=== PATIENT | female | born 1945 | race Caucasian/White ===

== ENCOUNTER 2022-01-23 08:51 | Outpatient (REF) | payer MEDICARE, OTHER, SELFPAY ==
[2022-01-23 10:32] LABS: MANUAL DIFF FLAG NO
[2022-01-23 10:37] LABS: Basophils Absolute Auto 0.1 X10*3/uL (0.0-0.2); Basophils Percent Auto 0.7 % (0-2); Eosinophils Absolute Auto 0.3 X10*3/uL (0.0-0.4); Eosinophils Percent Auto 3.5 % (0-4); Hemoglobin 13.9 g/dl (12.0-16.0); Imm Gran Abs Auto 0.03 X10*3/uL (0.00-0.03); Imm Gran Pct Auto 0.4 % (0.0-0.4); Lymphocytes Absolute Auto 3.7 X10*3/uL (1.2-4.9); Lymphocytes Percent Auto 43.7 % (20-40); Mean Corpuscular HGB Conc 32.3 g/dl (31.0-35.0); Mean Corpuscular Hemoglobin 29.6 pg (27.0-33.0); Mean Corpuscular Volume 91.7 fL (80.0-98.0); Mean Platelet Volume 12.2 fL (9.4-12.3); Monocytes Absolute Auto 0.7 X10*3/uL (0.1-1.2); Monocytes Percent Auto 8.6 % (2-11); Neutrophils Absolute Auto 3.6 x10*3/uL (2.0-8.3); Neutrophils Percent Auto 43.1 % (45-73); Platelet Count 202 X10*3/uL (160-400); Red Blood Count 4.69 X10*6/uL (4.20-5.50); Red Cell Distribution Width 13.2 % (11.0-16.0); White Blood Count 8.4 X10*3/uL (4.8-10.8)
[2022-01-23 10:54] LABS: Alanine Aminotransferase 14 U/L (0-31); Albumin Level 4.4 g/dL (3.5-5.0); Alkaline Phosphatase 65 U/L (39-117); Anion Gap 12 (12-20); Aspartate Amino Transferase 20 U/L (5-31); Bilirubin Total 0.5 mg/dL (0.0-1.0); Blood Urea Nitrogen 21 mg/dL (9-16); Carbon Dioxide 30 mmol/L (22-29); Chloride 103 mmol/L (96-108); Estimated Glomerular Filt Rate > 60; Glucose Random 98 mg/dL (60-115); Potassium 4.3 mmol/L (3.3-5.1); Sodium 141 mmol/L (135-145); Total Protein 7.7 g/dL (6.5-8.0)
[2022-01-23 11:14] LABS: Erythrocyte Sedimentation Rate 16 MM/HR (0-20)
[2022-01-30 12:56] LABS: Vitamin D 25-OH, D2 <4 ng/mL; Vitamin D 25-OH, D3 32 ng/mL; Vitamin D 25-OH, Total 32 ng/mL (30-100)
== END 2022-01-23 08:52 | disposition home or self-care (01) ==
LOC: HO.10HDL 08:51
PROVIDERS: Visit Provider Internal Medicine Rheumatology
DX: M06.9 Rheumatoid arthritis, unspecified (principal); M47.816 Spondylosis without myelopathy or radiculopathy, lumbar region; M85.80 Other specified disorders of bone density and structure, unspecified site; Z79.899 Other long term (current) drug therapy
CPT/HCPCS: 36415; 80053; 82306; 85025; 85652; 86140; 99212

== ENCOUNTER 2022-02-08 09:04 | Outpatient (REF) | payer MEDICARE, OTHER, SELFPAY ==
[2022-02-08 10:12] LABS: Blood Urea Nitrogen 16 mg/dL (9-16); Estimated Glomerular Filt Rate > 60
== END 2022-02-08 09:05 | disposition home or self-care (01) ==
LOC: HO.MDS 09:04
PROVIDERS: Visit Provider Internal Medicine Rheumatology
DX: M81.0 Age-related osteoporosis without current pathological fracture (principal)
CPT/HCPCS: 36415; 82565; 84520; 96365; J3489

== ENCOUNTER → 2022-05-23 08:03 | Outpatient (BNVA) | payer MEDICARE, OTHER, SELFPAY | PROVIDERS: PCP Internal Medicine; Referring Provider Internal Medicine; Visit Provider Internal Medicine Rheumatology | DX: M06.9 Rheumatoid arthritis, unspecified (principal); M85.80 Other specified disorders of bone density and structure, unspecified site; M47.816 Spondylosis without myelopathy or radiculopathy, lumbar region; Z79.899 Other long term (current) drug therapy | CPT/HCPCS: 99212 ==

== ENCOUNTER 2022-06-28 11:18 | Outpatient (REF) | payer MEDICARE, OTHER, SELFPAY ==
[2022-06-28 14:11] LABS: MANUAL DIFF FLAG NO
[2022-06-28 14:19] LABS: Basophils Absolute Auto 0.1 X10*3/uL (0.0-0.2); Basophils Percent Auto 0.6 % (0-2); Eosinophils Absolute Auto 0.2 X10*3/uL (0.0-0.4); Eosinophils Percent Auto 1.8 % (0-4); Hematocrit 41.5 % (37.0-47.0); Hemoglobin 13.6 g/dl (12.0-16.0); Imm Gran Abs Auto 0.03 X10*3/uL (0.00-0.03); Imm Gran Pct Auto 0.3 % (0.0-0.4); Lymphocytes Absolute Auto 3.6 X10*3/uL (1.2-4.9); Lymphocytes Percent Auto 36.8 % (20-40); Mean Corpuscular HGB Conc 32.8 g/dl (31.0-35.0); Mean Corpuscular Hemoglobin 31.1 pg (27.0-33.0); Mean Corpuscular Volume 94.7 fL (80.0-98.0); Mean Platelet Volume 12.5 fL (9.4-12.3); Monocytes Absolute Auto 0.7 X10*3/uL (0.1-1.2); Monocytes Percent Auto 7.5 % (2-11); Neutrophils Absolute Auto 5.2 x10*3/uL (2.0-8.3); Platelet Count 174 X10*3/uL (160-400); Red Blood Count 4.38 X10*6/uL (4.20-5.50); Red Cell Distribution Width 13.5 % (11.0-16.0); White Blood Count 9.9 X10*3/uL (4.8-10.8)
[2022-06-28 14:31] LABS: Alanine Aminotransferase 11 U/L (0-31); Aspartate Amino Transferase 15 U/L (5-31); C Reactive Protein 0.07 mg/dL (< or = 0.50); Estimated Glomerular Filt Rate > 60
[2022-06-28 14:57] LABS: Erythrocyte Sedimentation Rate 7 MM/HR (0-20)
== END 2022-06-28 11:19 | disposition home or self-care (01) ==
LOC: HO.HMGCLDS 11:18
PROVIDERS: PCP Internal Medicine; Visit Provider Internal Medicine Rheumatology
DX: M06.9 Rheumatoid arthritis, unspecified (principal); Z79.899 Other long term (current) drug therapy
CPT/HCPCS: 36415; 82565; 84450; 84460; 85025; 85652; 86140

== ENCOUNTER 2022-09-14 10:06 | Outpatient (REF) | payer MEDICARE, OTHER, SELFPAY ==
[2022-09-14 11:19] LABS: MANUAL DIFF FLAG NO
[2022-09-14 11:29] LABS: Basophils Absolute Auto 0.1 X10*3/uL (0.0-0.2); Basophils Percent Auto 0.9 % (0-2); Eosinophils Absolute Auto 0.2 X10*3/uL (0.0-0.4); Eosinophils Percent Auto 2.2 % (0-4); Hematocrit 40.8 % (37.0-47.0); Hemoglobin 13.4 g/dl (12.0-16.0); Imm Gran Abs Auto 0.03 X10*3/uL (0.00-0.03); Imm Gran Pct Auto 0.3 % (0.0-0.4); Lymphocytes Absolute Auto 4.3 X10*3/uL (1.2-4.9); Lymphocytes Percent Auto 44.5 % (20-40); Mean Corpuscular HGB Conc 32.8 g/dl (31.0-35.0); Mean Corpuscular Hemoglobin 30.7 pg (27.0-33.0); Mean Corpuscular Volume 93.4 fL (80.0-98.0); Mean Platelet Volume 12.2 fL (9.4-12.3); Monocytes Absolute Auto 0.8 X10*3/uL (0.1-1.2); Monocytes Percent Auto 8.1 % (2-11); Neutrophils Absolute Auto 4.2 x10*3/uL (2.0-8.3); Platelet Count 170 X10*3/uL (160-400); Red Blood Count 4.37 X10*6/uL (4.20-5.50); Red Cell Distribution Width 13.5 % (11.0-16.0); White Blood Count 9.6 X10*3/uL (4.8-10.8)
== END 2022-09-14 10:07 | disposition home or self-care (01) ==
LOC: HO.HMGCLDS 10:06
PROVIDERS: Visit Provider Internal Medicine Rheumatology
DX: M06.9 Rheumatoid arthritis, unspecified (principal); Z79.899 Other long term (current) drug therapy
CPT/HCPCS: 36415; 85025

== ENCOUNTER → 2022-09-23 08:04 | Outpatient (BNVA) | payer MEDICARE, OTHER, SELFPAY | PROVIDERS: PCP Internal Medicine; Visit Provider Internal Medicine Rheumatology | DX: R06.9 Unspecified abnormalities of breathing (principal); M47.816 Spondylosis without myelopathy or radiculopathy, lumbar region; M06.9 Rheumatoid arthritis, unspecified; M19.079 Primary osteoarthritis, unspecified ankle and foot; Z79.899 Other long term (current) drug therapy | CPT/HCPCS: 99212 ==

== ENCOUNTER 2023-01-09 10:10 | Outpatient (REF) | payer MEDICARE, OTHER, SELFPAY | END 2023-01-09 10:11 | disposition home or self-care (01) | LOC: HO.HMGCLDS 10:10 | PROVIDERS: PCP Internal Medicine; Visit Provider Internal Medicine Rheumatology | DX: M06.9 Rheumatoid arthritis, unspecified (principal); Z79.899 Other long term (current) drug therapy | CPT/HCPCS: 36415; 82565; 84450; 84460; 85025; 85652; 86140 ==

== ENCOUNTER 2023-02-10 08:05 | Outpatient (AMB) | payer MEDICARE, OTHER, SELFPAY ==
[2023-02-10 08:10] VITALS: BP 134/68; PULSE 65; TEMP 36.3; O2SAT 95; BMI 24.0
--- NOTE | 2023-02-10 08:10 | MHC.OFFVIS ---
Intake Vital Signs 02/10/23 08:10 Height 5 ft 1 in Weight 126 lb 15.78 oz BMI 24.0 BP 134/68 Blood Pressure Location Rt brachial Position Sitting Pulse 65 Pulse Source Pulse Oximeter Temp 97.3 F Temp Source Skin Pulse Oximetry (%) 95 Intake Visit Reasons: RA Allergies lisinopril Allergy (Intermediate, Verified 02/10/23 08:12) Cough metoclopramide [From Reglan] Allergy (Intermediate, Verified 02/10/23 08:12) SHAKY,ANXIETY Seasonal Allergies Allergy (Intermediate, Verified 02/10/23 08:12) RUNNY NOSE Medication List - Last Reconciled 02/10/23 by Leobardo Amos MD adalimumab (Humira(CF) Pen) 40 mg (0.4 mL) subcut Q2W atenolol 50 mg PO DAILY atorvastatin 10 mg PO DAILY calcium carbonate-vitamin D3 600 mg-10 mcg (400 unit) (Calcium 600 + D(3)) 1 tab PO BID cetirizine (Zyrtec) 10 mg PO BEDTIME fluticasone propionate 50 mcg/actuation (Allergy Relief (fluticasone)) 2 sprays intranasal DAILY folic acid 1 mg PO DAILY hydrochlorothiazide 25 mg PO DAILY losartan 50 mg PO DAILY methotrexate sodium 17.5 mg (7 x 2.5 mg) PO QWEEK omeprazole 20 mg PO DAILY HPI HPI Comments History of Present Illness Details The patient returns for evaluation of her rheumatoid arthritis, osteoarthritis, and osteoporosis. She remains on 17.5 mg weekly methotrexate, folic acid 1 mg daily and Humira 40 mg every 2 weeks. In general the joints are doing fairly well. There is occasional aching in the 1st MTP joints. She has been given a referral to Podiatry but never got an appointment. She is thinking for right now she does not want to proceed with any surgical procedure on the feet. She did have to hold the Humira few weeks ago when she had a cat bite. She seems to have recovered from that with antibiotics. About a year ago she received a zoledronic acid infusion for osteopenia. That was tolerated well with no side effects. PFSH Surgical History Hx laparoscopic cholecystectomy Hx of colonoscopy Family History Father Hx of CABG Mother Asthma CHF (congestive heart failure) Sister Macular degeneration Social History Household Members Other:: lives alone Housing: [facility] Are you a primary rental boats caretaker to a significant other at home: No Do you presently have visiting nurse or other home services: No Alcohol intake: current Alcohol intake frequency: holidays/special occasions only Alcohol type: wine Patient Tobacco Use Status: Former Tobacco user Quit Date: 1981 Years Smoked: quit 1979 e-Cigarette/Vaping Use: Never Used service: No Current occupational status: employed 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 Card Details: Negative chest pain, edema and syncope Resp Details: Negative for SOB, cough and wheezing GI Details: Negative indigestion/heartburn, nausea, abdominal pain, bowel changes, diarrhea, constipation and bloody stool. Endo Details: Negative for polyuria and polydypsia Williams/Lymph Details: Negative for excessive bruising or bleeding. Physical Exam Vital Signs: Last Vital Signs Temp 97.3 F 02/10/23 08:10 Pulse 65 02/10/23 08:10 BP 134/68 02/10/23 08:10 Pulse Ox 95 02/10/23 08:10 BMI result Body Mass Index 24.0 APPEARANCE: Patient in no acute distress EXTREMITIES: No edema, no calf tenderness, normal peripheral pulses. JOINT EXAM: Cervical Spine:.? Full range of motion without pain; no tenderness. Thoracic Spine:.? Some scoliosis.? No tenderness on palpation. Lumbar Spine:.? Alignment normal.? Full range of motion without pain, no tenderness. Chest Wall:.? No tenderness, swelling, increased warmth or erythema. Hands:? Right:? There is slight swelling at the 2nd MCP and PIP without tenderness, triggering or pain with motion.? There is no thickening or tenderness in the other joints.? Otherwise the fingers have pain-free range of motion without tenderness or swelling.? There is no thenar atrophy or sensory loss.? Left:? Pain-free range of motion.? There is some slight thickening at the 2nd MCP without tenderness.? Other joints without tenderness or swelling.? No thenar atrophy or sensory loss.. Wrists:.? Normal pain-free range of motion without tenderness, swelling, increased warmth or erythema. Elbows:. Normal pain-free range of motion without tenderness, swelling, increased warmth or erythema. Shoulders:.?? Full range of motion without pain. No tenderness, weakness, swelling, increased warmth or erythema. Hips:.? Full range of motion without pain. Hip bursa:.? No tenderness. Knees:.?? Normal pain-free range of motion with slight patellofemoral crepitus but no effusion, tenderness, swelling, increased warmth or erythema. Ankles:.? Normal pain-free range of motion without tenderness, swelling, increased warmth or erythema. Feet:.? Right:? There is prominent bony swelling at the 1st MTP joint which is minimally tender.? On the medial aspect the joint the skin looks a little bit irritated and red.? There is no break in the skin.? There is some slight tenderness at the 2nd MTP joint.? The 2nd toe overrides the 1st.? Elsewhere there is no tenderness or swelling.? Left: Mild bony enlargement with minimal tenderness at the 1st MTP joint.? Other joints have normal pain-free range of motion without tenderness, swelling, increased warmth or erythema. . ? Results Reviewed Results Reviewed: Laboratory Tests 01/09/23 01/09/23 01/09/23 10:17 10:17 10:17 WBC 8.0 Hgb 13.9 ESR 10 AST 22 ALT 18 C-Reactive Protein 0.11 Assessment & Plan Assessment & Plan (1) Osteoarthritis of lumbar spine: Code(s): M47.816 - Spondylosis without myelopathy or radiculopathy, lumbar region (2) Long-term use of immunosuppressant medication: Code(s): Z79.899 - Other senior living (current) drug therapy (3) Osteopenia: Comment: DEXA 04/2021: Lumbar Spine: L1-L4 BMD: 1.119 g/cm2 T-Score: 1.3 Z-Score: 3.7 Compared with the prior study dated 02/15/2019, the BMD reading has increased which is statistically significant Left Proximal Femur: Neck BMD: 0.734 g/cm2 T-Score: -1.0 Z-Score: 1.0 Total BMD: 0.773 g/cm2 T-Score: -1.4 Z-Score: 0.4 Compared with the prior study the mean BMD reading in the total left hip has increased which is statistically significant Compared with standards for the young adult, lowest measured bone density places the patient in the W.H.O. osteopenic range. FRAX 10 year probability of major osteoporotic fracture: 28% FRAX 10 year probability of hip fracture: 5.1% 02/08/22: IV zoledronic acid given Code(s): M85.80 - Other specified disorders of bone density and structure, unspecified site (4) Rheumatoid arthritis: Comment: Hydroxychloroquine not working - 1989.s. Methotrexate started late 1989's ON REMICADE AND MTX since 2001; Remicade stopped spring 2007 due to sinusitis Humira started January 2008 Code(s): M06.9 - Rheumatoid arthritis, unspecified Plan Rheumatoid arthritis with good control of synovitis with current treatment. The lab work looks okay so I think those medications can be continued. She is symptomatic a bit with her osteoarthritis in the feet but does not want to have surgery there. Previous episodes of back pain due to lumbar osteoarthritis have not recurred. She is due for another infusion of zoledronic acid to treat her osteopenia. We will check BMP and vitamin-D level. If those look okay we will arrange for an infusion of the IV zoledronic acid. Otherwise her labs to monitor the methotrexate use would be due again in March. I would plan to see her back in June. Orders: Orders Basic Metabolic Panel Today M85.80 - Other specified disorders of bone density and structure, unspecified site Vitamin D 25-OH (D2 and D3) Today M85.80 - Other specified disorders of bone density and structure, unspecified site Coding Level of Care Code Est Pt Level 3 (77600) Diagnoses Osteoarthritis of lumbar spine M47.816 Long-term use of immunosuppressant medication Z79.899 Osteopenia M85.80 Rheumatoid arthritis M06.9
== END 2023-02-10 08:30 | disposition home or self-care (01) ==
PROVIDERS: PCP Internal Medicine; Visit Provider Internal Medicine Rheumatology
DX: M47.816 Spondylosis without myelopathy or radiculopathy, lumbar region (principal); Z79.899 Other long term (current) drug therapy; M85.80 Other specified disorders of bone density and structure, unspecified site; M06.9 Rheumatoid arthritis, unspecified
CPT/HCPCS: 99213

== ENCOUNTER 2023-02-10 08:35 | Outpatient (REF) | payer MEDICARE, OTHER, SELFPAY ==
[2023-02-10 11:03] LABS: Anion Gap 15 (12-20); Blood Urea Nitrogen 13 mg/dL (9-16); Calcium 9.6 mg/dL (8.4-10.2); Carbon Dioxide 26 mmol/L (22-29); Chloride 105 mmol/L (96-108); Estimated Glomerular Filt Rate > 60; Glucose Random 89 mg/dL (60-115); Potassium 3.9 mmol/L (3.3-5.1); Sodium 142 mmol/L (135-145)
[2023-02-14 15:08] LABS: Vitamin D 25-OH, D2 <4 ng/mL; Vitamin D 25-OH, D3 22 ng/mL; Vitamin D 25-OH, Total 22 ng/mL (30-100)
== END 2023-02-10 08:36 | disposition home or self-care (01) ==
LOC: HO.10HDL 08:35
PROVIDERS: Visit Provider Internal Medicine Rheumatology
DX: M85.80 Other specified disorders of bone density and structure, unspecified site (principal); M47.816 Spondylosis without myelopathy or radiculopathy, lumbar region; M06.9 Rheumatoid arthritis, unspecified; Z79.899 Other long term (current) drug therapy
CPT/HCPCS: 36415; 80048; 82306; 99212

== ENCOUNTER 2023-03-25 11:30 | Outpatient (REF) | payer MEDICARE, OTHER, SELFPAY ==
[2023-03-25 13:34] LABS: MANUAL DIFF FLAG NO
[2023-03-25 13:42] LABS: Basophils Absolute Auto 0.1 X10*3/uL (0.0-0.2); Basophils Percent Auto 0.7 % (0-2); Eosinophils Absolute Auto 0.1 X10*3/uL (0.0-0.4); Eosinophils Percent Auto 1.4 % (0-4); Hematocrit 40.8 % (37.0-47.0); Hemoglobin 13.6 g/dl (12.0-16.0); Imm Gran Abs Auto 0.03 X10*3/uL (0.00-0.03); Imm Gran Pct Auto 0.3 % (0.0-0.4); Lymphocytes Absolute Auto 3.7 X10*3/uL (1.2-4.9); Lymphocytes Percent Auto 38.6 % (20-40); Mean Corpuscular HGB Conc 33.3 g/dl (31.0-35.0); Mean Corpuscular Hemoglobin 32.3 pg (27.0-33.0); Mean Corpuscular Volume 96.9 fL (80.0-98.0); Monocytes Absolute Auto 0.7 X10*3/uL (0.1-1.2); Monocytes Percent Auto 6.9 % (2-11); Neutrophils Percent Auto 52.1 % (45-73); Platelet Count 206 X10*3/uL (160-400); Red Blood Count 4.21 X10*6/uL (4.20-5.50); Red Cell Distribution Width 13.5 % (11.0-16.0); White Blood Count 9.5 X10*3/uL (4.8-10.8)
[2023-03-25 14:02] LABS: Alanine Aminotransferase 25 U/L (0-31); Albumin Level 4.3 g/dL (3.5-5.0); Alkaline Phosphatase 51 U/L (39-117); Anion Gap 11 (12-20); Aspartate Amino Transferase 25 U/L (5-31); Bilirubin Total 0.7 mg/dL (0.0-1.0); Blood Urea Nitrogen 26 mg/dL (9-16); C Reactive Protein 0.31 mg/dL (< or = 0.50); Calcium 9.9 mg/dL (8.4-10.2); Carbon Dioxide 28 mmol/L (22-29); Chloride 105 mmol/L (96-108); Estimated Glomerular Filt Rate > 60; Glucose Random 126 mg/dL (60-115); Potassium 3.7 mmol/L (3.3-5.1); Sodium 140 mmol/L (135-145); Total Protein 7.4 g/dL (6.5-8.0)
[2023-03-25 15:23] LABS: Erythrocyte Sedimentation Rate 10 MM/HR (0-20)
== END 2023-03-25 11:31 | disposition home or self-care (01) ==
LOC: HO.10HDL 11:30
PROVIDERS: Visit Provider Internal Medicine Rheumatology
DX: M06.9 Rheumatoid arthritis, unspecified (principal); M85.80 Other specified disorders of bone density and structure, unspecified site; Z79.899 Other long term (current) drug therapy
CPT/HCPCS: 36415; 80053; 85025; 85652; 86140

== ENCOUNTER 2023-03-27 08:35 | Outpatient (REF) | payer MEDICARE, OTHER, SELFPAY | END 2023-03-27 08:36 | disposition home or self-care (01) | LOC: HO.MDS 08:35 | PROVIDERS: Visit Provider Internal Medicine Rheumatology | DX: M81.0 Age-related osteoporosis without current pathological fracture (principal) | CPT/HCPCS: 96365; J3489 ==

== ENCOUNTER 2023-06-10 06:17 | Outpatient (REF) | payer MEDICARE, OTHER, SELFPAY ==
[2023-06-10 10:29] LABS: MANUAL DIFF FLAG NO
[2023-06-10 11:02] LABS: Basophils Percent Auto 0.5 % (0-2); Eosinophils Absolute Auto 0.2 X10*3/uL (0.0-0.4); Eosinophils Percent Auto 2.6 % (0-4); Hematocrit 40.7 % (37.0-47.0); Hemoglobin 13.5 g/dl (12.0-16.0); Imm Gran Abs Auto 0.02 X10*3/uL (0.00-0.03); Imm Gran Pct Auto 0.3 % (0.0-0.4); Lymphocytes Absolute Auto 3.5 X10*3/uL (1.2-4.9); Lymphocytes Percent Auto 47.5 % (20-40); Mean Corpuscular HGB Conc 33.2 g/dl (31.0-35.0); Mean Corpuscular Hemoglobin 32.4 pg (27.0-33.0); Mean Corpuscular Volume 97.6 fL (80.0-98.0); Mean Platelet Volume 11.9 fL (9.4-12.3); Monocytes Absolute Auto 0.6 X10*3/uL (0.1-1.2); Monocytes Percent Auto 8.5 % (2-11); Neutrophils Percent Auto 40.6 % (45-73); Platelet Count 173 X10*3/uL (160-400); Red Blood Count 4.17 X10*6/uL (4.20-5.50); Red Cell Distribution Width 13.2 % (11.0-16.0); White Blood Count 7.4 X10*3/uL (4.8-10.8)
[2023-06-10 11:32] LABS: Erythrocyte Sedimentation Rate 7 MM/HR (0-20)
[2023-06-10 12:17] LABS: Alanine Aminotransferase 76 U/L (0-31); Aspartate Amino Transferase 59 U/L (5-31); C Reactive Protein < 0.04 mg/dL (< or = 0.50); Estimated Glomerular Filt Rate > 60
== END 2023-06-10 06:18 | disposition home or self-care (01) ==
LOC: HO.HMGCLDS 06:17
PROVIDERS: PCP Internal Medicine; Visit Provider Internal Medicine Rheumatology
DX: M06.9 Rheumatoid arthritis, unspecified (principal); Z79.899 Other long term (current) drug therapy
CPT/HCPCS: 36415; 82565; 84450; 84460; 85025; 85652; 86140

== ENCOUNTER 2023-06-12 07:59 | Outpatient (AMB) | payer MEDICARE, OTHER, SELFPAY ==
--- NOTE | 2023-06-12 08:03 | A.OFFVIS_ITS ---
Intake Vital Signs 06/12/23 08:08 Height 5 ft 1 in Weight 127 lb 6.835 oz BMI 24.1 BP 120/72 Blood Pressure Location Lt brachial Position Sitting Pulse 72 Pulse Source Pulse Oximeter Temp 97 F Temp Source Skin Pulse Oximetry (%) 96 Oxygen Delivery Method Room Air Intake Visit Reasons: ra Intake Note: Patient presents today to follow up on RA. Reports abd discomfort caused by Calcium with Vit D. 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 Accompanied by: Self / Same As Patient Allergies lisinopril Allergy (Intermediate, Verified 06/12/23 08:03) Cough metoclopramide [From Reglan] Allergy (Intermediate, Verified 06/12/23 08:03) SHAKY,ANXIETY Seasonal Allergies Allergy (Intermediate, Verified 06/12/23 08:03) RUNNY NOSE Medication List - Last Reconciled 06/12/23 by Leobardo Amos MD adalimumab (Humira(CF) Pen) 40 mg (0.4 mL) subcut Q2W atenolol 50 mg PO DAILY atorvastatin 10 mg PO DAILY calcium carbonate-vitamin D3 600 mg-10 mcg (400 unit) (Calcium 600 + D(3)) 1 tab PO BID cetirizine (Zyrtec) 10 mg PO BEDTIME fluticasone propionate 50 mcg/actuation (Allergy Relief (fluticasone)) 2 sprays intranasal DAILY folic acid 1 mg PO DAILY hydrochlorothiazide 25 mg PO DAILY losartan 50 mg PO DAILY methotrexate sodium 17.5 mg (7 x 2.5 mg) PO QWEEK omeprazole 20 mg PO DAILY HPI HPI Comments History of Present Illness Details The patient returns for evaluation of her rheumatoid arthritis. She remains on methotrexate 15 mg weekly, folic acid 1 mg daily, and Humira 40 mg every 2 weeks. In general she has been tolerating the medications okay. She did have an period of time about a month ago when she missed a dose of the Humira because of insurance changes but no disease flare-up ensued. She does get occasional pain in the 1st MTP joints bilaterally where she has known degenerative disease. She takes occasional acetaminophen for that. That did not result in any flare of symptoms. PFSH Surgical History Hx laparoscopic cholecystectomy Hx of colonoscopy Family History Father Hx of CABG Mother Asthma CHF (congestive heart failure) Sister Macular degeneration Social History Household Members Other:: lives alone 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 Card Details: Negative chest pain, edema and syncope Resp Details: Negative for SOB, cough and wheezing GI Details: Negative indigestion/heartburn, nausea, abdominal pain, bowel changes, diarrhea, constipation and bloody stool. Williams/Lymph Details: Negative for excessive bruising or bleeding. Physical Exam Vital Signs: Last Vital Signs Temp 97 F 06/12/23 08:08 Pulse 72 06/12/23 08:08 BP 120/72 06/12/23 08:08 Pulse Ox 96 06/12/23 08:08 Oxygen Delivery Method Room Air 06/12/23 08:08 BMI result Body Mass Index 24.1 APPEARANCE: Patient in no acute distress ABD: Normal bowel sounds, no organomegaly, masses or tenderness. EXTREMITIES: No edema, no calf tenderness, normal peripheral pulses. JOINT EXAM: ? Cervical Spine:.? Full range of motion without pain; no tenderness. Thoracic Spine:.? Some scoliosis.? No tenderness on palpation. Lumbar Spine:.? Alignment normal.? Full range of motion without pain, no tenderness. Chest Wall:.? No tenderness, swelling, increased warmth or erythema. Hands:? Right:? There is slight swelling at the 2nd MCP and PIP without tenderness, triggering or pain with motion.? There is no thickening or tenderness in the other joints.? Otherwise the fingers have pain-free range of motion without tenderness or swelling.? There is no thenar atrophy or sensory loss.? Left:? Pain-free range of motion.? There is some slight thickening at the 2nd MCP without tenderness.? Other joints without tenderness or swelling.? No thenar atrophy or sensory loss.. Wrists:.? Normal pain-free range of motion without tenderness, swelling, increased warmth or erythema. Elbows:. Normal pain-free range of motion without tenderness, swelling, increased warmth or erythema. Shoulders:.?? Full range of motion without pain. No tenderness, weakness, s welling, increased warmth or erythema. Hips:.? Full range of motion without pain. Hip bursa:.? No tenderness. Knees:.?? Normal pain-free range of motion with slight patellofemoral crepitus but no effusion, tenderness, swelling, increased warmth or erythema. Ankles:.? Normal pain-free range of motion without tenderness, swelling, increased warmth or erythema. Feet:.? Right:? There is prominent bony swelling at the 1st MTP joint which is minimally tender.? ? There is some slight tenderness at the 2nd MTP joint.? The 2nd toe overrides the 1st.? Elsewhere there is no tenderness or swelling.? Left: Mild bony enlargement with minimal tenderness at the 1st MTP joint.? Other joints have normal pain-free range of motion without tenderness, swelling, increased warmth or erythema. . ? Results Reviewed Results Reviewed: Laboratory Tests 06/10/23 06:44 WBC 7.4 Hgb 13.5 ESR 7 Creatinine 0.81 C-Reactive Protein < 0.04 Laboratory Tests 03/25/23 06/10/23 11:36 06:44 AST 25 59 H ALT 25 76 H Assessment & Plan Assessment & Plan (1) Osteoarthritis of foot: Code(s): M19.079 - Primary osteoarthritis, unspecified ankle and foot (2) Long-term use of immunosuppressant medication: Code(s): Z79.899 - Other middle or intermediate school principal (current) drug therapy (3) Elevated transaminase measurement: Code(s): R74.01 - Elevation of levels of liver transaminase levels (4) Rheumatoid arthritis: Comment: Hydroxychloroquine not working - 1990.s. Methotrexate started late ON REMICADE AND MTX since 2001; Remicade stopped spring 2007 due to sinusitis Humira started January 2008 Code(s): M06.9 - Rheumatoid arthritis, unspecified Plan Presently there are no signs of active rheumatoid arthritis with her current treatment. She does have some mild degenerative changes in the hands and the 1st MTP joints in the feet. She seems to be tolerating her medications but now we are faced with mild transaminase elevations. She denies any recent change in medications or recent infections. She has however drinking 1-2 glasses of wine with most meals. I told her that that could be a cause of the transaminase elevations if that is a new issue. I will also reduce the methotrexate to 12.5 mg weekly. She will cut back to just 1 glass twice a week and we will check lab work again in about 6 weeks. Follow-up at 3 months in Rheumatology is also recommended. Orders: Orders Alanine Aminotransferase Today Z79.899 - Other middle or intermediate school principal (current) drug therapy Aspartate Amino Transferase Today Z79.899 - Other middle or intermediate school principal (current) drug therapy Medications: Changed From methotrexate sodium 17.5 mg (7 x 2.5 mg) PO QWEEK 84 tabs 0RF M06.9 - Rheumatoid arthritis, unspecified To methotrexate sodium 12.5 mg (5 x 2.5 mg) PO QWEEK 60 tabs 0RF M06.9 - Rheumatoid arthritis, unspecified Coding Level of Care Code Est Pt Level 4 (60431) Diagnoses Osteoarthritis of foot M19.079 Long-term use of immunosuppressant medication Z79.899 Elevated transaminase measurement R74.01 Rheumatoid arthritis M06.9
[2023-06-12 08:08] VITALS: BP 120/72; PULSE 72; TEMP 36.1; O2SAT 96; BMI 24.1
== END 2023-06-12 08:28 | disposition home or self-care (01) ==
PROVIDERS: PCP Internal Medicine; Visit Provider Internal Medicine Rheumatology
DX: M19.079 Primary osteoarthritis, unspecified ankle and foot (principal); Z79.899 Other long term (current) drug therapy; R74.01 Elevation of levels of liver transaminase levels; M06.9 Rheumatoid arthritis, unspecified
CPT/HCPCS: 99214

== ENCOUNTER → 2023-06-12 07:59 | Outpatient (BNVA) | payer MEDICARE, OTHER, SELFPAY | PROVIDERS: PCP Internal Medicine; Visit Provider Internal Medicine Rheumatology | DX: M06.9 Rheumatoid arthritis, unspecified (principal); M19.079 Primary osteoarthritis, unspecified ankle and foot; R74.01 Elevation of levels of liver transaminase levels; Z79.899 Other long term (current) drug therapy | CPT/HCPCS: 99212 ==

== ENCOUNTER 2023-07-21 13:31 | Outpatient (REF) | payer MEDICARE, OTHER, SELFPAY ==
[2023-07-21 15:59] LABS: Alanine Aminotransferase 13 U/L (0-31); Aspartate Amino Transferase 16 U/L (5-31)
== END 2023-07-21 13:32 | disposition home or self-care (01) ==
LOC: HO.HMGCLDS 13:31
PROVIDERS: PCP Internal Medicine; Visit Provider Internal Medicine Rheumatology
DX: Z79.899 Other long term (current) drug therapy (principal)
CPT/HCPCS: 36415; 84450; 84460

== ENCOUNTER 2023-09-11 07:39 | Outpatient (AMB) | payer MEDICARE, OTHER, SELFPAY ==
[2023-09-11 07:45] VITALS: BP 132/70; PULSE 66; O2SAT 97; BMI 24.0
--- NOTE | 2023-09-11 07:45 | MHC.OFFVIS ---
Intake Vital Signs 09/11/23 07:45 Height 5 ft 1 in Weight 126 lb 15.78 oz BMI 24.0 BP 132/70 Blood Pressure Location Rt brachial Position Sitting Pulse 66 Pulse Source Pulse Oximeter Pulse Oximetry (%) 97 Oxygen Delivery Method Room Air Intake Visit Reasons: ra with dr martin Hand Note: Patient last seen 06/12/23 presents today for follow up and test results. Allergies lisinopril Allergy (Intermediate, Verified 06/12/23 08:03) Cough metoclopramide [From Reglan] Allergy (Intermediate, Verified 06/12/23 08:03) SHAKY,ANXIETY Seasonal Allergies Allergy (Intermediate, Verified 06/12/23 08:03) RUNNY NOSE Medication List - Last Reconciled 09/11/23 by Omid Hui MD adalimumab (Humira(CF) Pen) 40 mg (0.4 mL) subcut Q2W atenolol 50 mg PO DAILY atorvastatin 10 mg PO DAILY calcium carbonate-vitamin D3 600 mg-10 mcg (400 unit) (Calcium 600 + D(3)) 1 tab PO BID cetirizine (Zyrtec) 10 mg PO BEDTIME fluticasone propionate 50 mcg/actuation (Allergy Relief (fluticasone)) 2 sprays intranasal DAILY folic acid 1 mg PO DAILY hydrochlorothiazide 25 mg PO DAILY losartan 50 mg PO DAILY methotrexate sodium 12.5 mg (5 x 2.5 mg) PO QWEEK omeprazole 20 mg PO DAILY HPI HPI Comments History of Present Illness Details 77-year-old female with rheumatoid arthritis returns for follow-up. She is on methotrexate 12.5 mg weekly, Humira every other week. Doing very well overall. No new complaints. She attributes the increase in liver enzymes in June to increasing alcohol consumption. She has no complaints today Most recent history by Dr. Amos's 06/2023: The patient returns for evaluation of her rheumatoid arthritis. She remains on methotrexate 15 mg weekly, folic acid 1 mg daily, and Humira 40 mg every 2 weeks. In general she has been tolerating the medications okay. She did have an period of time about a month ago when she missed a dose of the Humira because of insurance changes but no disease flare-up ensued. She does get occasional pain in the 1st MTP joints bilaterally where she has known degenerative disease. She takes occasional acetaminophen for that. That did not result in any flare of symptoms. PFS Surgical History Hx laparoscopic cholecystectomy Hx of colonoscopy Family History Father Hx of CABG Mother Asthma CHF (congestive heart failure) Sister Macular degeneration Social History Household Members Other:: lives alone [facility] Are you a primary clinical manager home care to a significant other at home: No Do you presently have visiting nurse or other home services: No 75 years or older and lives alone: Yes Alcohol intake: current Alcohol intake frequency: holidays/special occasions only Alcohol type: wine Patient Tobacco Use Status: Former Tobacco user Quit Date: 1981 Smoked: quit 1979 e-Cigarette/Vaping Use: Never Used service: No Current occupational status: employed 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 Review of Systems Musc Denies arthralgias, Denies joint swelling and Denies stiffness Physical Exam Vital Signs: Last Vital Signs Pulse 66 09/11/23 07:45 BP 132/70 09/11/23 07:45 Pulse Ox 97 09/11/23 07:45 Oxygen Delivery Method Room Air 09/11/23 07:45 BMI result Body Mass Index 24.0 Const General: cooperative, healthy appearing and comfortable Nutritional Appearance: average body habitus Orientation/consciousness: patient oriented x3 Limitations: no limitations HEENT Head: Yes normocephalic and Yes atraumatic Mouth: moist mucous membranes Resp Effort & Inspection: normal respiratory effort and able to speak in complete sentences Auscultation: clear to auscultation bilaterally Cardio Rate: regular rate Rhythm: regular rhythm Skin General skin exam: no rashes or lesions noted Neuro General: patient oriented x3 Extrem Other: Mild osteoarthritic changes of both hands with no active synovitis Prominent right bunion Normal nailfold capillaroscopy Assessment & Plan Assessment & Plan (1) Rheumatoid arthritis: Comment: Hydroxychloroquine not working - 1990.s. Methotrexate started late ON REMICADE AND MTX since 2001; Remicade stopped spring 2007 due to sinusitis Humira started January 2008 effective Code(s): M06.9 - Rheumatoid arthritis, unspecified Qualifiers: Rheumatoid arthritis location: multiple sites Rheumatoid factor presence: without rheumatoid factor Qualified Code(s): M06.09 - Rheumatoid arthritis without rheumatoid factor, multiple sites Plan: This is a 77-year-old female with rheumatoid arthritis who presents for follow-up. She used to follow-up with Dr. Amos. This is her 1st visit with me. She is doing well with no active synovitis on methotrexate 12.5 mg weekly, folic acid daily and Humira every other week Continue current meds. Labs before next visit in 3 months (2) Long-term use of immunosuppressant medication: Code(s): Z79.899 - Other ocean transportation intermediary (current) drug therapy Plan: Monitor safety labs Plan I spent 24 minutes reviewing patient's chart, evaluating patient, ordering diagnostic workup, counseling patient and documenting in the chart Orders: Orders Comprehensive Met. Panel 3 Months M06.9 - Rheumatoid arthritis, unspecified, Z79.899 - Other ocean transportation intermediary (current) drug therapy Erythrocyte Sedimentation Rate 3 Months M06.9 - Rheumatoid arthritis, unspecified, Z79.899 - Other ocean transportation intermediary (current) drug therapy T Spot TB 3 Months Z11.7 - Encounter for testing for latent tuberculosis infection Cyclic Citrullinated Peptide 3 Months M06.9 - Rheumatoid arthritis, unspecified Complete Blood Count Auto Diff 3 Months M06.9 - Rheumatoid arthritis, unspecified, Z79.899 - Other ocean transportation intermediary (current) drug therapy C Reactive Protein 3 Months M06.9 - Rheumatoid arthritis, unspecified, Z79.899 - Other custodial (current) drug therapy Hepatitis A,B,C Profile 3 Months Z11.59 - Encounter for screening for other viral diseases Coding Level of Care Code Est Pt Level 4 (39681) Diagnoses Rheumatoid arthritis of multiple sites with negative rheumatoid factor M06.09 Rheumatoid arthritis location: multiple sites Rheumatoid factor presence: without rheumatoid factor Long-term use of immunosuppressant medication Z79.899
== END 2023-09-11 08:05 | disposition home or self-care (01) ==
PROVIDERS: PCP Internal Medicine; Visit Provider Student in an Organized Health Care Education/Training Program
DX: M06.09 Rheumatoid arthritis without rheumatoid factor, multiple sites (principal); Z79.899 Other long term (current) drug therapy
CPT/HCPCS: 99214

== ENCOUNTER → 2023-09-11 07:39 | Outpatient (BNVA) | payer MEDICARE, OTHER, SELFPAY | PROVIDERS: PCP Internal Medicine; Visit Provider Student in an Organized Health Care Education/Training Program | DX: M06.09 Rheumatoid arthritis without rheumatoid factor, multiple sites (principal); Z79.899 Other long term (current) drug therapy | CPT/HCPCS: 99212 ==

== ENCOUNTER 2023-11-01 10:56 | Outpatient (REF) | payer MEDICARE, OTHER, SELFPAY ==
[2023-11-01 13:45] LABS: MANUAL DIFF FLAG NO
[2023-11-01 13:53] LABS: Basophils Percent Auto 0.5 % (0-2); Eosinophils Absolute Auto 0.2 X10*3/uL (0.0-0.4); Hematocrit 39.5 % (37.0-47.0); Hemoglobin 13.6 g/dl (12.0-16.0); Imm Gran Abs Auto 0.02 X10*3/uL (0.00-0.03); Imm Gran Pct Auto 0.3 % (0.0-0.4); Lymphocytes Absolute Auto 3.5 X10*3/uL (1.2-4.9); Lymphocytes Percent Auto 43.8 % (20-40); Mean Corpuscular HGB Conc 34.4 g/dl (31.0-35.0); Mean Corpuscular Hemoglobin 31.9 pg (27.0-33.0); Mean Corpuscular Volume 92.7 fL (80.0-98.0); Mean Platelet Volume 12.8 fL (9.4-12.3); Monocytes Absolute Auto 0.7 X10*3/uL (0.1-1.2); Monocytes Percent Auto 8.4 % (2-11); Neutrophils Absolute Auto 3.6 x10*3/uL (2.0-8.3); Platelet Count 157 X10*3/uL (160-400); Red Blood Count 4.26 X10*6/uL (4.20-5.50); Red Cell Distribution Width 13.6 % (11.0-16.0); White Blood Count 7.9 X10*3/uL (4.8-10.8)
[2023-11-01 14:12] LABS: Alanine Aminotransferase 18 U/L (0-31); Alkaline Phosphatase 39 U/L (39-117); Anion Gap 13 (12-20); Aspartate Amino Transferase 17 U/L (5-31); Bilirubin Total 0.7 mg/dL (0.0-1.0); Blood Urea Nitrogen 18 mg/dL (9-16); C Reactive Protein < 0.04 mg/dL (< or = 0.50); Calcium 9.8 mg/dL (8.4-10.2); Carbon Dioxide 30 mmol/L (22-29); Chloride 102 mmol/L (96-108); Estimated Glomerular Filt Rate > 60; Glucose Random 100 mg/dL (60-115); Potassium 4.2 mmol/L (3.3-5.1); Sodium 141 mmol/L (135-145); Total Protein 7.2 g/dL (6.5-8.0)
[2023-11-01 14:38] LABS: Erythrocyte Sedimentation Rate 6 MM/HR (0-20)
[2023-11-03 09:17] LABS: HBS Num1 0.47 mIU/mL (0-7.99); HBc Num1 0.06 S/CO (0.00-0.79); HBsAGNum1 0.38 S/CO (0.00-0.99); Hepatitis A Antibody IgM 0.72 Index (0-0.79); Hepatitis B Core Antibody Nonreactive (Nonreactive); Hepatitis B Surface Antigen Negative (Negative); ~HepC Num1 0.09 S/CO (0.00-0.79); ~Hepatitis A Antibody IgM Nonreactive (Nonreactive); ~Hepatitis B Surface Antibody NONREACTIVE (Nonreactive); ~Hepatitis C Antibody Nonreactive (Nonreactive)
[2023-11-03 18:44] LABS: Cyclic Citrullinated Peptide <16 UNITS
== END 2023-11-01 10:57 | disposition home or self-care (01) ==
LOC: HO.HMGCLDS 10:56
PROVIDERS: PCP Internal Medicine; Visit Provider Student in an Organized Health Care Education/Training Program
DX: M06.9 Rheumatoid arthritis, unspecified (principal); Z11.59 Encounter for screening for other viral diseases; Z72.89 Other problems related to lifestyle; Z79.899 Other long term (current) drug therapy
CPT/HCPCS: 36415; 80053; 85025; 85652; 86140; 86200; 86704; 86706; 86709; 86803; 87340

== ENCOUNTER 2023-12-15 07:46 | Outpatient (AMB) | payer MEDICARE, OTHER, SELFPAY ==
[2023-12-15 07:49] VITALS: BP 136/68; PULSE 69; O2SAT 95; BMI 24.2
--- NOTE | 2023-12-15 07:49 | A.OFFVIS_ITS ---
Vital Signs 12/15/23 07:49 Height 5 ft 1 in Weight 128 lb 1.417 oz BMI 24.2 BP 136/68 Blood Pressure Location Rt brachial Position Sitting Pulse 69 Pulse Source Pulse Oximeter Pulse Oximetry (%) 95 Oxygen Delivery Method Room Air Intake Visit Reasons: RA/CM Intake Note: Patient last seen 09/11/23 presents today for follow up and test results. Allergies lisinopril Allergy (Intermediate, Verified 12/15/23 07:55) Cough metoclopramide [From Reglan] Allergy (Intermediate, Verified 12/15/23 07:55) SHAKY,ANXIETY Seasonal Allergies Allergy (Intermediate, Verified 12/15/23 07:55) RUNNY NOSE Medication List - Last Reconciled 12/15/23 by Omid Hui MD adalimumab (Humira(CF) Pen) 40 mg (0.4 mL) subcut Q2W atenolol 50 mg PO DAILY atorvastatin 10 mg PO DAILY calcium carbonate-vitamin D3 600 mg-10 mcg (400 unit) (Calcium 600 + D(3)) 1 tab PO BID cetirizine (Zyrtec) 10 mg PO BEDTIME fluticasone propionate 50 mcg/actuation (Allergy Relief (fluticasone)) 2 sprays intranasal DAILY folic acid 1 mg PO DAILY hydrochlorothiazide 25 mg PO DAILY losartan 50 mg PO DAILY methotrexate sodium 12.5 mg (5 x 2.5 mg) PO QWEEK omeprazole 20 mg PO DAILY HPI Comments Details: 78-year-old female with rheumatoid arthritis returns for follow-up. She is on methotrexate 12.5 mg weekly, Humira every other week. Doing very well overall. No new complaints. Gets occasional triggering of her right ring finger but it has not sclerae problematic for her these days. In the past she has received injections by Dr. Amos Most recent history by Dr. Amos's 06/2023: The patient returns for evaluation of her rheumatoid arthritis. She remains on methotrexate 15 mg weekly, folic acid 1 mg daily, and Humira 40 mg every 2 weeks. In general she has been tolerating the medications okay. She did have an period of time about a month ago when she missed a dose of the Humira because of insurance changes but no disease flare-up ensued. She does get occasional pain in the 1st MTP joints bilaterally where she has known degenerative disease. She takes occasional acetaminophen for that. That did not result in any flare of symptoms. PFSH Surgical History Hx laparoscopic cholecystectomy Hx of colonoscopy Family History Father Hx of CABG Mother Asthma CHF (congestive heart failure) Sister Macular degeneration Social History Household Members Other:: lives alone Housing: [facility] Are you a primary daytime caregiver to a significant other at home: No Do you presently have visiting nurse or other home services: No 75 years or older and lives alone: Yes Alcohol intake: current Alcohol intake frequency: holidays/special occasions only Alcohol type: wine Patient Tobacco Use Status: Former Tobacco user Years Smoked: quit 1979 e-Cigarette/Vaping Use: Never Used service: No Current occupational status: employed 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 Review of Systems Musc Denies arthralgias, Denies joint swelling and Denies stiffness Physical Exam Vital Signs: Last Vital Signs Pulse 69 12/15/23 07:49 BP 136/68 12/15/23 07:49 Pulse Ox 95 12/15/23 07:49 Oxygen Delivery Method Room Air 12/15/23 07:49 BMI result Body Mass Index 24.2 Const General: cooperative, healthy appearing and comfortable Nutritional Appearance: average body habitus Orientation/consciousness: patient oriented x3 Limitations: no limitations HEENT Head: Yes normocephalic and Yes atraumatic Mouth: moist mucous membranes Resp Effort & Inspection: normal respiratory effort and able to speak in complete sentences Auscultation: clear to auscultation bilaterally Cardio Rate: regular rate Rhythm: regular rhythm Skin General skin exam: no rashes or lesions noted Neuro General: patient oriented x3 Extrem Other: Mild osteoarthritic changes of both hands with no active synovitis Prominent left ulnar styloid Prominent right bunion Normal nailfold capillaroscopy Results Reviewed Results Reviewed: DEXA 04/2021 done at [place]: Lumbar Spine: L1-L4 BMD: 1.119 g/cm2 T-Score: 1.3 Z-Score: 3.7 Compared with the prior study dated 02/15/2019, the BMD reading has increased which is statistically significant Left Proximal Femur: Neck BMD: 0.734 g/cm2 T-Score: -1.0 Z-Score: 1.0 Total BMD: 0.773 g/cm2 T-Score: -1.4 Z-Score: 0.4 Compared with the prior study the mean BMD reading in the total left hip has increased which is statistically significant Compared with standards for the young adult, lowest measured bone density places the patient in the W.H.O. osteopenic range. FRAX 10 year probability of major osteoporotic fracture: 28% FRAX 10 year probability of hip fracture: 5.1% Assessment & Plan Assessment & Plan (1) Rheumatoid arthritis: Comment: Hydroxychloroquine not working - 1989.s. Methotrexate started late ON REMICADE AND MTX since 2001; Remicade stopped spring 2007 due to sinusitis Humira started January 2008 effective Code(s): M06.9 - Rheumatoid arthritis, unspecified Category: Medical Qualifiers: Rheumatoid arthritis location: multiple sites Rheumatoid factor presence: without rheumatoid factor Qualified Code(s): M06.09 - Rheumatoid arthritis without rheumatoid factor, multiple sites Plan: This is a 77-year-old female with rheumatoid arthritis who presents for follow- up. She used to follow-up with Dr. Amos. This is her 1st visit with me. She is doing well with no active synovitis on methotrexate 12.5 mg weekly, folic acid daily and Humira every other week Continue current meds. Labs before next visit in 3 months (2) Long-term use of immunosuppressant medication: Code(s): Z79.899 - Other retirement (current) drug therapy Category: Medical Plan: Monitor safety labs (3) Osteopenia: Comment: DEXA 04/2021: Lumbar Spine: L1-L4 BMD: 1.119 g/cm2 T-Score: 1.3 Z-Score: 3.7 Compared with the prior study dated 02/15/2019, the BMD reading has increased which is statistically significant Left Proximal Femur: Neck BMD: 0.734 g/cm2 T-Score: -1.0 Z-Score: 1.0 Total BMD: 0.773 g/cm2 T-Score: -1.4 Z-Score: 0.4 Compared with the prior study the mean BMD reading in the total left hip has in creased which is statistically significant Compared with standards for the young adult, lowest measured bone density places the patient in the W.H.O. osteopenic range. FRAX 10 year probability of major osteoporotic fracture: 28% FRAX 10 year probability of hip fracture: 5.1% 02/08/22, 03/27/23: IV zoledronic acid given Code(s): M85.80 - Other specified disorders of bone density and structure, unspecified site Category: Medical Qualifiers: Osteopenia location: multiple sites Qualified Code(s): M85.89 - Other specified disorders of bone density and structure, multiple sites Plan: History of osteopenia with high FRAX score. In the past patient could not tolerate alendronate. Was switched to Reclast. First dose was in 2021. Second dose was in 03/2023 she is due for another Reclast infusion 03/2024. We will arrange for that. Plan to repeat DEXA this fall. Continue calcium and vitamin- D supplementation Plan I spent 24 minutes reviewing patient's chart, evaluating patient, ordering diagnostic workup, counseling patient and documenting in the chart Orders: Orders Comprehensive Met. 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
== END 2023-12-15 08:05 | disposition home or self-care (01) ==
PROVIDERS: PCP Internal Medicine; Visit Provider Student in an Organized Health Care Education/Training Program
DX: M06.09 Rheumatoid arthritis without rheumatoid factor, multiple sites (principal); Z79.899 Other long term (current) drug therapy; M85.89 Other specified disorders of bone density and structure, multiple sites
CPT/HCPCS: 99214; G2211

== ENCOUNTER → 2023-12-15 07:46 | Outpatient (BNVA) | payer MEDICARE, OTHER, SELFPAY | PROVIDERS: PCP Internal Medicine; Visit Provider Student in an Organized Health Care Education/Training Program | DX: M06.09 Rheumatoid arthritis without rheumatoid factor, multiple sites (principal); M85.89 Other specified disorders of bone density and structure, multiple sites; Z79.899 Other long term (current) drug therapy | CPT/HCPCS: 99212 ==

== ENCOUNTER 2024-03-25 08:11 | Outpatient (REF) | payer MEDICARE, OTHER, SELFPAY ==
--- NOTE | ~2024-03-25 | MM_ITS ---
EXAMINATION: BONE DENSITOMETRY CLINICAL INDICATION: Age-related osteoporosis without current pathological fracture. COMPARISON: This is the patient's baseline examination. TECHNIQUE: Using a virtual [employer] DXA System (software version: 13.1) manufactured by [employer], dual-energy x-ray absorptiometry was performed of the lumbar spine and left hip. The images are of good technical quality. Summary results are attached. FINDINGS: LEFT FEMUR, NECK: BMD 0.806 g/cm2, Z-score 0.5, T-score -1.7, osteopenia. LEFT FEMUR, TOTAL: BMD 0.787 g/cm2, Z-score 0.3, T-score -1.7, osteopenia. AP SPINE L1-L2 (excluding L3 and L4): The data of L1-L4 has been changed to exclude the L3 and L4 vertebral bodies, because L1-L2 (excluding L3 and L4): The data of L1-L4 has been changed to exclude the L3 and L4 vertebral bodies, because significant degenerative change at these levels may cause overestimation of lumbar spine density. BMD 1.154 g/cm2, Z-score 2.0, T-score -0.1, normal. IDENTIFIED RISK FACTORS: Menopause, height loss, history of fracture (adult), rheumatoid arthritis. HISTORY OF FRACTURE: Humerus. MEDICATIONS: Calcium, vitamin D. MM/XR DEXA axial skeleton IMPRESSION: 1. DIAGNOSIS: Osteopenia based on the lowest T-score value of -1.7 in the femur neck and total femur applying World Health Organization criteria. 2. 10-YEAR FRACTURE RISK PREDICTION, FRAX: Major osteoporotic fracture (clinical spine, forearm, hip or shoulder) 24.6%. Hip fracture 6.1%. 3. Treatment Recommendations: NOF guidelines recommend consideration for treatment in postmenopausal women and men age 50 and older presenting with the following: -A hip or vertebral (clinical or morphometric) fracture. -T-score less than or equal to -2.5 at the femoral neck or spine after appropriate evaluation to exclude secondary causes. -Low bone mass at the hip or spine and a 10-year fracture probability by FRAX of greater than or equal to 3% for hip fracture or greater than or equal to 20% for major osteoporotic fracture based on the [place] adapted WHO algorithm. 4. Other Recommendations: All treatment decisions require clinical judgment and consideration of individual patient factors, including patient preferences, comorbidities, previous drug use, risk factors not captured in the FRAX model (e.g. frailty, falls, vitamin D deficiency, increased bone turnover, interval significant decline in bone density) and possible under or overestimation of fracture risk by FRAX. Additional medical evaluation for secondary cause of low bone mineral density may be appropriate. FUTURE SCAN RECOMMENDATION: People with diagnosed cases of osteoporosis or at high risk for fracture should have regular bone mineral density tests. For patients eligible for Medicare, routine testing is allowed once every 2 years. The testing frequency can be increased to one year for patients who have rapidly progressing disease, those who are receiving or discontinuing medical therapy to restore bone mass, or have additional risk factors. Electronically signed by: Alisa Hein MD 04/13/2024 08:34 AM EDT NIKHIL
== END 2024-03-25 08:12 | disposition home or self-care (01) ==
LOC: HO.MAMMO 08:11
PROVIDERS: PCP Internal Medicine; Visit Provider Student in an Organized Health Care Education/Training Program
DX: M81.0 Age-related osteoporosis without current pathological fracture (principal)
CPT/HCPCS: 77080

== ENCOUNTER 2024-04-10 10:30 | Outpatient (REF) | payer MEDICARE, OTHER, SELFPAY ==
[2024-04-10 12:50] LABS: MANUAL DIFF FLAG NO
[2024-04-10 12:56] LABS: Basophils Absolute Auto 0.1 X10*3/uL (0.0-0.2); Eosinophils Absolute Auto 0.3 X10*3/uL (0.0-0.4); Hematocrit 38.6 % (37.0-47.0); Imm Gran Abs Auto 0.02 X10*3/uL (0.00-0.03); Imm Gran Pct Auto 0.2 % (0.0-0.4); Lymphocytes Absolute Auto 3.9 X10*3/uL (1.2-4.9); Lymphocytes Percent Auto 45.6 % (20-40); Mean Corpuscular HGB Conc 33.7 g/dl (31.0-35.0); Mean Corpuscular Hemoglobin 32.1 pg (27.0-33.0); Mean Corpuscular Volume 95.3 fL (80.0-98.0); Mean Platelet Volume 12.1 fL (9.4-12.3); Monocytes Absolute Auto 0.8 X10*3/uL (0.1-1.2); Monocytes Percent Auto 9.4 % (2-11); Neutrophils Absolute Auto 3.5 x10*3/uL (2.0-8.3); Neutrophils Percent Auto 40.8 % (45-73); Platelet Count 167 X10*3/uL (160-400); Red Blood Count 4.05 X10*6/uL (4.20-5.50); Red Cell Distribution Width 13.6 % (11.0-16.0); White Blood Count 8.6 X10*3/uL (4.8-10.8)
[2024-04-10 13:08] LABS: Alanine Aminotransferase 15 U/L (0-31); Albumin Level 4.1 g/dL (3.5-5.0); Alkaline Phosphatase 42 U/L (39-117); Anion Gap 10 (12-20); Aspartate Amino Transferase 18 U/L (5-31); Bilirubin Total 0.6 mg/dL (0.0-1.0); Blood Urea Nitrogen 24 mg/dL (9-16); C Reactive Protein < 0.10 mg/dL (< or = 0.50); Calcium 8.8 mg/dL (8.4-10.2); Carbon Dioxide 28 mmol/L (22-29); Chloride 106 mmol/L (96-108); Estimated Glomerular Filt Rate > 60; Glucose Random 95 mg/dL (60-115); Potassium 3.6 mmol/L (3.3-5.1); Sodium 140 mmol/L (135-145); Total Protein 7.2 g/dL (6.5-8.0)
== END 2024-04-10 10:31 | disposition home or self-care (01) ==
LOC: HO.HMGCLDS 10:30
PROVIDERS: PCP Internal Medicine; Visit Provider Student in an Organized Health Care Education/Training Program
DX: M06.09 Rheumatoid arthritis without rheumatoid factor, multiple sites (principal); Z79.899 Other long term (current) drug therapy
CPT/HCPCS: 36415; 80053; 85025; 86140

== ENCOUNTER 2024-04-15 07:56 | Outpatient (AMB) | payer MEDICARE, OTHER, SELFPAY ==
--- NOTE | 2024-04-15 08:05 | A.OFFVIS_ITS ---
Vital Signs 04/15/24 08:08 Height 5 ft 1 in Weight 131 lb 2.801 oz BMI 24.8 BP 122/70 Blood Pressure Location Rt brachial Position Sitting Pulse 66 Pulse Source Pulse Oximeter Pulse Oximetry (%) 97 Oxygen Delivery Method Room Air Intake Visit Reasons: RA Intake Note: Patient presents for RA. Allergies lisinopril Allergy (Intermediate, Verified 04/15/24 08:08) Cough metoclopramide [From Reglan] Allergy (Intermediate, Verified 04/15/24 08:08) SHAKY,ANXIETY Seasonal Allergies Allergy (Intermediate, Verified 04/15/24 08:08) RUNNY NOSE Medication List - Last Reconciled 04/15/24 by Omid Hui MD adalimumab (Humira(CF) Pen) 40 mg (0.4 mL) subcut Q2W atenolol 50 mg PO DAILY atorvastatin 10 mg PO DAILY calcium carbonate-vitamin D3 600 mg-10 mcg (400 unit) (Calcium 600 + D(3)) 1 tab PO BID cetirizine (Zyrtec) 10 mg PO BEDTIME fluticasone propionate 50 mcg/actuation (Allergy Relief (fluticasone)) 2 sprays intranasal DAILY folic acid 1 mg PO DAILY hydrochlorothiazide 25 mg PO DAILY losartan 50 mg PO DAILY methotrexate sodium 12.5 mg (5 x 2.5 mg) PO QWEEK omeprazole 20 mg PO DAILY HPI Comments Details: 78-year-old female with rheumatoid arthritis returns for follow-up. She is on methotrexate 12.5 mg weekly, Humira every other week. Doing very well overall. She states that she has been having pain in her right arm and right forearm reggie cially with activity such as lifting a picture of water. She used her left hand. She is doing well otherwise. She states that she had COVID about a month ago and it lasted 4 days. Most recent history by Dr. Amos's 06/2023: The patient returns for evaluation of her rheumatoid arthritis. She remains on methotrexate 15 mg weekly, folic acid 1 mg daily, and Humira 40 mg every 2 weeks. In general she has been tolerating the medications okay. She did have an period of time about a month ago when she missed a dose of the Humira because of insurance changes but no disease flare-up ensued. She does get occasional pain in the 1st MTP joints bilaterally where she has known degenerative disease. She takes occasional acetaminophen for that. That did not result in any flare of symptoms. PFSH Surgical History Hx laparoscopic cholecystectomy Hx of colonoscopy Family History Father Hx of CABG Mother Asthma CHF (congestive heart failure) Sister Macular degeneration Social History Household Members Other:: lives alone Housing: [facility] Are you a primary animal caretaker to a significant other at home: No Do you presently have visiting nurse or other home services: No 75 years or older and lives alone: Yes Alcohol intake: current Alcohol intake frequency: holidays/special occasions only Alcohol type: wine Patient Tobacco Use Status: Former Tobacco user Years Smoked: quit 1979 e-Cigarette/Vaping Use: Never Used service: No Current occupational status: employed 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 Review of Systems Musc Details: Muscle pain Denies arthralgias and Denies joint swelling Physical Exam Vital Signs: Last Vital Signs Pulse 66 04/15/24 08:08 BP 122/70 04/15/24 08:08 Pulse Ox 97 04/15/24 08:08 Oxygen Delivery Method Room Air 04/15/24 08:08 BMI result Body Mass Index 24.8 Const General: cooperative, healthy appearing and comfortable Nutritional Appearance: average body habitus Orientation/consciousness: patient oriented x3 Limitations: no limitations HEENT Head: Yes normocephalic and Yes atraumatic Mouth: moist mucous membranes Resp Effort & Inspection: normal respiratory effort and able to speak in complete sentences Skin General skin exam: no rashes or lesions noted Neuro General: patient oriented x3 Extrem Other: Mild osteoarthritic changes of both hands with no active synovitis Prominent left ulnar styloid Prominent right bunion Normal nailfold capillaroscopy Results Reviewed Results Reviewed: DEXA 04/2021 done at [place]: Lumbar Spine: L1-L4 BMD: 1.119 g/cm2 T-Score: 1.3 Z-Score: 3.7 Compared with the prior study dated 02/15/2019, the BMD reading has increased which is statistically significant Left Proximal Femur: Neck BMD: 0.734 g/cm2 T-Score: -1.0 Z-Score: 1.0 Total BMD: 0.773 g/cm2 T-Score: -1.4 Z-Score: 0.4 Compared with the prior study the mean BMD reading in the total left hip has increased which is statistically significant Compared with standards for the young adult, lowest measured bone density places the patient in the W.H.O. osteopenic range. FRAX 10 year probability of major osteoporotic fracture: 28% FRAX 10 year probability of hip fracture: 5.1% Ordering Physician: Omid Hui MD Results: Date of Service: 03/25/24 Follow Up: Procedure(s): XR DEXA axial skeleton Accession Number(s): [id number] cc: Jourdan Estrella III, MD; Omid Hui MD~ EXAMINATION: BONE DENSITOMETRY CLINICAL INDICATION: Age-related osteoporosis without current pathological fracture. COMPARISON: This is the patient's baseline examination. TECHNIQUE: Using a [employer] DXA System (software version: 13.1) manufactured by [employer], dual-energy x-ray absorptiometry was performed of the lumbar spine and left hip. The images are of good technical quality. Summary results are attached. FINDINGS: LEFT FEMUR, NECK: BMD 0.806 g/cm2, Z-score 0.5, T-score -1.7, osteopenia. LEFT FEMUR, TOTAL: BMD 0.787 g/cm2, Z-score 0.3, T-score -1.7, osteopenia. AP SPINE L1-L2 (excluding L3 and L4): The data of L1-L4 has been changed to exclude the L3 and L4 vertebral bodies, because L1-L2 (excluding L3 and L4): The data of L1-L4 has been changed to exclude the L3 and L4 vertebral bodies, because significant degenerative change at these levels may cause overestimation of lumbar spine density. BMD 1.154 g/cm2, Z-score 2.0, T-score -0.1, normal. IDENTIFIED RISK FACTORS: Menopause, height loss, history of fracture (adult), rheumatoid arthritis. HISTORY OF FRACTURE: Humerus. MEDICATIONS: Calcium, vitamin D. MM/XR DEXA axial skeleton IMPRESSION: 1. DIAGNOSIS: Osteopenia based on the lowest T-score value of -1.7 in the femur neck and total femur applying World Health Organization criteria. Assessment & Plan Assessment & Plan (1) Rheumatoid arthritis: Comment: Hydroxychloroquine not working - 1989.s. Methotrexate started late ON REMICADE AND MTX since 2001; Remicade stopped spring 2007 due to sinusitis Humira started January 2008 effective Code(s): M06.9 - Rheumatoid arthritis, unspecified Category: Medical Qualifiers: Rheumatoid arthritis location: multiple sites Rheumatoid factor presence: without rheumatoid factor Qualified Code(s): M06.09 - Rheumatoid arthritis without rheumatoid factor, multiple sites Plan: This is a 78-year-old female with rheumatoid arthritis who presents for follow- up. She is doing well with no active synovitis on methotrexate 12.5 mg weekly, folic acid daily and Humira every other week Reduce methotrexate to 10 mg once weekly Continue Humira and folic acid as prescribed Labs before next visit in 4 months (2) Long-term use of immunosuppressant medication: Code(s): Z79.899 - [facility] drug therapy Category: Medical Plan: Monitor safety labs Side effects of Humira were discussed with the patient in detail including increased risk of infection, demyelinating disease, reactivation of latent TB, possible increased risk of solid and skin tumors. Patient fully aware. Advised patient to seek medical care [facility] if patient has an infection and advised patient to stop the medication until the infection is resolved. (3) Osteopenia: Comment: 02/08/22, 03/27/23: IV zoledronic acid given Code(s): M85.80 - Other specified disorders of bone density and structure, unspecified site Category: Medical Qualifiers: Osteopenia location: multiple sites Qualified Code(s): M85.89 - Other specified disorders of bone density and structure, multiple sites Plan: History of osteopenia with high FRAX score. In the past patient could not tolerate alendronate. Was switched to Reclast. First dose was in 2021. Second dose was in 03/2023 she is due for another Reclast infusion. We will arrange for that. Her repeat DEXA was done in a different facility. It did show improvement in bone mineral density but her T-score is lowered. Her bone density is stable. Patient can be on a drug holiday after this years Reclast infusion (4) Right tennis elbow: Code(s): M77.11 - Lateral epicondylitis, right elbow Category: Medical Plan: Advised patient to let us know if this does not improve in the coming few weeks and we can refer her to occupational therapy (5) Immunization counseling: Code(s): Z71.85 - Encounter for immunization safety counseling Category: Medical Plan: Patient received flu vaccine for this season. Advised patient to get the COVID booster next month, skip 2 doses of methotrexate after vaccination. Continue Humira throughout Plan I spent 45 minutes reviewing patient's chart, evaluating patient, ordering diagnostic workup, counseling patient and documenting in the chart Orders: Orders Complete Blood Count Auto Diff 4 Months M06.09 - Rheumatoid arthritis without rheumatoid factor, multiple sites, Z79.899 - Other [facility] drug therapy C Reactive Protein 4 Months M06.09 - Rheumatoid arthritis without rheumatoid factor, multiple sites, Z79.899 - Other [facility] drug therapy Erythrocyte Sedimentation Rate 4 Months M06.09 - Rheumatoid arthritis without rheumatoid factor, multiple sites, Z79.899 - 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 Vitamin D 25-OH (D2 and D3) 4 Months E55.9 - Vitamin D deficiency, unspecified Referrals Infusion Center Notification M85.89 - Other specified disorders of bone density and structure, multiple sites Medications: Changed From methotrexate sodium 12.5 mg (5 x 2.5 mg) PO QWEEK 60 tabs 0RF M06.9 - Rheumatoid arthritis, unspecified To methotrexate sodium 10 mg (4 x 2.5 mg) PO QWEEK 48 tabs 1RF M06.9 - Rheumatoid arthritis, unspecified Coding Level of Care Code Est Pt Level 5 (26597) Complex EM visit Add On G2211 Diagnoses Rheumatoid arthritis of multiple sites with negative rheumatoid factor M06.09 Rheumatoid arthritis location: multiple sites Rheumatoid factor presence: without rheumatoid factor Long-term use of immunosuppressant medication Z79.899 Osteopenia of multiple sites M85.89 Osteopenia location: multiple sites Right tennis elbow M77.11 Immunization counseling Z71.85
[2024-04-15 08:08] VITALS: BP 122/70; PULSE 66; O2SAT 97; BMI 24.8
== END 2024-04-15 08:24 | disposition home or self-care (01) ==
PROVIDERS: PCP Internal Medicine; Visit Provider Student in an Organized Health Care Education/Training Program
DX: M06.09 Rheumatoid arthritis without rheumatoid factor, multiple sites (principal); Z79.899 Other long term (current) drug therapy; M85.89 Other specified disorders of bone density and structure, multiple sites; M77.11 Lateral epicondylitis, right elbow; Z71.85 Encounter for immunization safety counseling
CPT/HCPCS: 99215; G2211

== ENCOUNTER → 2024-04-15 07:56 | Outpatient (BNVA) | payer MEDICARE, OTHER, SELFPAY | PROVIDERS: PCP Internal Medicine; Visit Provider Student in an Organized Health Care Education/Training Program | DX: M06.09 Rheumatoid arthritis without rheumatoid factor, multiple sites (principal); M85.89 Other specified disorders of bone density and structure, multiple sites; M77.11 Lateral epicondylitis, right elbow; Z71.85 Encounter for immunization safety counseling; Z79.899 Other long term (current) drug therapy | CPT/HCPCS: 99212 ==

== ENCOUNTER 2024-04-21 07:36 | Outpatient (RCR) | payer MEDICARE, OTHER, SELFPAY ==
[2024-04-21 07:40] VITALS: BP 152/70; PULSE 63; RESP 16; TEMP 36.9; O2SAT 96
[2024-04-21] MEDS: Zoledronic Acid/Mannitol-Water 5 MG/100 ML PGGYBK.BTL IV (07:44)
[2024-04-21] MEDS: 0.9 % Sodium Chloride Flush 10 ML SYRINGE 5 ML IVFLUSH (08:05)
== END 2024-04-21 08:30 | disposition home or self-care (01) ==
LOC: HO.INF 07:36
PROVIDERS: Visit Provider Student in an Organized Health Care Education/Training Program
DX: M85.89 Other specified disorders of bone density and structure, multiple sites (principal)
CPT/HCPCS: 96374; J3489

== ENCOUNTER 2024-08-21 10:25 | Outpatient (REF) | payer MEDICARE, OTHER, SELFPAY ==
--- OUTSIDE RECORDS SUMMARY | 2024-08-21 10:28 | XMS_ITS | Clinical Summary ---
Author Organization [address] Address [address] [place] [phone] Phone Care Team Providers Care Fine Craft Artist Name Role Phone Jourdan Estrella MD Primary Care Provider [phone] Allergies Active Allergy Reactions Criticality Noted Date Comments Lisinopril 09/01/2020 Cough Metoclopramide Hcl Palpitations 06/09/2017 Shaking and Anxiety Sx Other Runny nose 11/16/2010 Medications adalimumab (Humira,CF, Pen) 40 mg/0.4 mL pen 0.4 mL (40 mg total). Inject 40 mg into the skin every 14 days. 1 Active atenoloL (TENORMIN) 50 mg tablet Take 1 Tablet by mouth daily. 4 Active atorvastatin (LIPITOR) 10 mg tablet Take 1 tablet (10 mg total) by mouth 1 (one) time each day. TAKE 1 TABLET BY MOUTH EVERY DAY 4 Active fluticasone propionate (FLONASE) 50 mcg/actuation nasal spray 2 Sprays by Nasal route daily. 4 Active folic acid (FOLVITE) 1 mg tablet Take 1 Tablet by mouth daily. 4 Active hydroCHLOROthia zide (HYDRODIURIL) 25 mg tablet Take 1 tablet (25 mg total) by mouth 1 (one) time each day. Take 1 Tablet by mouth daily. 4 Active losartan (COZAAR) 50 mg tablet Take 1 tablet (50 mg total) by mouth 1 (one) time each day. Take 1 Tablet by mouth daily. 4 Active methotrexate 2.5 mg tablet Take 1 tablet (2.5 mg total) by mouth 1 (one) time per week Take 4 Tablets by mouth once a week. Active calcium carbonate-vitam in D3 (Calcium 600 with Vitamin D3) 600 mg-10 mcg (400 unit) chewable tablet Chew 1 tablet 1 (one) time each day. TAKE 1 TABLET BY MOUTH TWICE A DAY 4 Active omeprazole (PriLOSEC) [address] capsule TAKE 1 CAPSULE BY MOUTH DAILY. TAKE 30 MINUTES BEFORE BREAKFAST 90 capsule 1 5 Active Active Problems Problem Noted Date Diagnosed Date Gastroesophageal reflux disease 11/13/2021 FRANCK-inhibitor cough 09/01/2020 History of COVID-19 06/15/2020 Overview (04/21/2024): URI, GI symptoms, headache Common bile duct dilatation 10/10/2017 Overview (04/21/2024): 9 mm on [facility] CAT scan of 09/29/2017 [facility] records reviewed 05/27/2018, 1 year follow-up MRI recommended by Dr. Rivera as liver function tests were normal. This would be due in October 2018. Biliary dilatation stable on 10/26/2018 Spondylosis of lumbar region without myelopathy or radiculopathy 04/01/2017 Seronegative rheumatoid arthritis of multiple si omid 10/29/2016 Overview (04/21/2024): Hydroxychloroquine not working - 1990.s. Methotrexate started late 1989's ON REMICADE AND MTX since 2001; Remicade stopped spring 2007 due to sinusitis Humira started January 2008 Aortic regurgitation 12/26/2009 Overview (04/21/2024): Mild-moderate on echo of 12/20/2009 Osteopenia 07/05/2008 Overview (04/21/2024): Mild, T -1.4 2007; little change on BMD 2011 Benign neoplasm of rectum and anal canal 007 Overview (04/21/2024): Diminutive tubular adenoma removed at colonoscopy 06/09/2002. Negative colonoscopy 06/15/2007. Small tubular adenoma 2014, consider colonoscopy 2021. Hypertension 08/06/2006 Sciatica 05/08/2005 Overview (04/21/2024): DJD at multiple levels on CT 03/2004 Encounters Date Type Department Care Team Description 06/07/2024 4:30 PM EST Office Visit Adult Medicine [address] [phone] Jourdan Estrella MD Primary hypertension (Primary Dx); Hypercholesterolemia; Encounter for long-term (current) use of medications; Gastroesophageal reflux disease without esophagitis; Seronegative rheumatoid arthritis of multiple sites ([facility]) from Last 3 Months Immunizations Name Administration Dates Next Due H1N1 Inj Preservative Free 06/27/2009 Influenza Quadravalent, 0.5m l (Fluad) 65yo and older 04/29/2023 Influenza trivalent, 0.5mL ( Fluad) 65yo and older 04/13/2022,03/29/2021,04/03/2015 Influenza trivalent, 0.5mL ( Fluzone High-dose) 65yo and older 04/10/2024,03/29/2021,04/27/2019,05/14,04/03/2015 Influenza trivalent, 0.5mL, preservative free (Fluarix; FluLaval; Fluzone) ages 6mo and older (Afluria) 3 years and older 04/06/2020,05/19/2018,04/08/2014,04/06,04/16/2012,04/08/2011,05/26/2010 ,04/08/2009,05/21/2007,05/13/2006,09/2005 PPD Test 01/07/2008 Pfizer SARS-CoV-2 COVID-19, mRNA, LNP-S, preservative free 06/07/2021,10/05/2020,09/14/2020 Pneumococcal conjugate 13 va lent (Prevnar 13, PCV13) 2mo and older 03/01/2015 Pneumococcal polysaccharide 23 valent (Pneumovax 23) 2yo and older 11/24/2018,02/28/2010 Td Tetanus diptheria (Tdvax) 7yo and older 05/28/2019 Tdap Tetanus diptheria acell ular pertussis (Boostrix; Adacel) 7yo and older 12/17/2008 Zoster recombinant (Shingrix ) 19yo and older 07/29/2020,05/27/2020 Surgical History Surgery Date Site/Laterality Comments CHOLECYSTECTOMY 1969 PROCEDURE: [place] LAPAROSCOPY SURG CHOLECYSTECTOMY OTHER SURGICAL HISTORY PROCEDURE: ---- OTHER ----; COMMENT: LN removed r axilla OTHER SURGICAL HISTORY PROCEDURE: ---- OTHER ----; COMMENT: sinus surgery COLONOSCOPY 10/20/2014 PROCEDURE: HISTORICAL COLONOSCOPY; COMMENT: 5 mm polyp at 30 cm: Tubular adenoma COLONOSCOPY 06/15/2007 PROCEDURE: HISTORICAL COLONOSCOPY; COMMENT: Negative COLONOSCOPY 06/09/2002 PROCEDURE: HISTORICAL COLONOSCOPY; COMMENT: dim rectal tub ad Medical History Medical History Date Comments Other deficiencies of circul ating enzymes 05/08/2005 DX:Other deficiencies of circulating enzymes Personal history of colonic polyps 2001 DX:Personal history of colonic polyps Rheumatoid arthritis(714.0) 05/08/2005 DX:R heumatoid arthritis(714.0); COMMENT: ON REMICADE AND MTX, mtx and Humira Sciatica 05/08/2005 DX:Sciatica; COM MENT: DJD at multiple levels on CT 03/2004 Essential hypertension, benign 08/06/2006 D X:Essential hypertension, benign Unspecified essential hypertension 01/15/2006 DX:Unspecified essential hypertension Heart disease, unspecified 01/15/2006 DX:He art disease, unspecified Benign neoplasm of rectum an d anal canal 06/15/2007 DX:Benign neoplasm of rectum and anal canal; COMMENT: Diminutive tubular adenoma removed at colonoscopy 06/09/2002. Negative colonoscopy 06/15/2007, no colon cancer screening needed for 7 years. Fracture, humerus 04/15 DX:Fracture, h umerus; COMMENT: right Gastroesophageal reflux disease 11/13/2021 DX:Gastroesophageal reflux disease Family History Medical History Relation Name Comments CABG Father age 80 Asthma Mother Heart failure Mother Macular degeneration Sister Blindness Neg Hx Breast cancer Neg Hx Cataracts Neg Hx Colon cancer Neg Hx Glaucoma Neg Hx Ovarian cancer Neg Hx Strabismus Neg Hx Relation Name Status Comments Father Mother Sister Social History Tobacco Use Types Packs/Day Years Used Date Smoking Tobacco: Former Cigarettes 3 20 0 07/07/1961 - 07/08/1981 Smokeless Tobacco: Never Tobacco Cessation:Counseling Given: Not Answered Alcohol Use Standard Drinks/Week Comments Yes 0 (1 standard drink = 0.6 oz pur e alcohol) Comments Unknown Sex and Gender Information Value Date Recorded Sex Assigned at Not on file Legal Sex Female 7:40 AM EST Gender Identity Not on file Sexual Orientation Not on file Obstetrics History Last Filed Vital Signs Vital Sign Reading Time Taken Comments Blood Pressure 134/70 06/07/2024 5:59 PM EST Pulse 59 06/07/2024 4:49 PM EST Temperature 36.3 ??C (97.3 ??F) 06/07/2024 4:49 PM ES T Respiratory Rate 14 06/07/2024 4:49 PM EST Oxygen Saturation - - Inhaled Oxygen Concentration - - Weight 58.5 kg (129 lb) 06/07/2024 4:49 PM EST Height 154.9 cm (5' 1 ) 06/07/2024 4:49 PM EST Body Mass Index 24.37 06/07/2024 4:49 PM EST Plan of Treatment Upcoming Encounters Date Type Department Care Team (Late st Contact Info) Description 09/11/2024 11:30 AM EST Appointment Radiology Department [address] [phone] Health Maintenance Due Date Last Done Comments RSV Immunization Patients 60+ Years Old (1 - 1-dose 75+ series) 2021 Depression Screening 06/15/2022 Social Influencers of Health Screening 06/15/2022 Medicare Annual Wellness Visit 05/26/2024 05/26/2023 Falls Risk Assessment 12/01/2024 12/02/2023 Hypertension/CHF/CAD Annual BMP Blood Test 07/06/2025 07/06/2024, 05/26/2023 DTaP,Tdap,and Td Vaccines (3 - Td or Tdap) 05/28/2029 05/28/2019, 12/17/2008 Cholesterol Screening (Lipid Panel) 07/06/2029 07/06/2024, 09/09/2022 Osteoporosis Screening (Bone Density Screening) 04/20/2031 04/20/2021, 02/15/2019 Colorectal Cancer Screening: Colonoscopy 04/25/2032 04/25/2022 Hepatitis C Screening Completed 12/19/2012 Pneumococcal Vaccine: 50+ Years Completed 11/24/2018, 03/01/2015, 02/28/2010 Zoster Vaccines Completed 07/29/2020, 05/27/2020 Influenza Vaccine Completed 04/10/2024, , 04/13/2022, Additional history exists COVID-19 Vaccine Completed 06/22/2024, , 11/05/2022, Additional history exists HIB Vaccines Aged Out No longer eligi ble based on patient's age to complete this topic HPV Vaccines Aged Out No longer eligi ble based on patient's age to complete this topic Hepatitis A Vaccines Aged Out No long er eligible based on patient's age to complete this topic Hepatitis B Vaccines Aged Out No long er eligible based on patient's age to complete this topic IPV Vaccines Aged Out No longer eligi ble based on patient's age to complete this topic MMR Vaccines Aged Out No longer eligi ble based on patient's age to complete this topic Meningococcal ACWY Vaccine Aged Out N o longer eligible based on patient's age to complete this topic Meningococcal B Vacine Aged Out No lo nger eligible based on patient's age to complete this topic RSV Immunization Patients Under 20 months Aged Out No longer eligible based on patient's age to complete this topic Varicella Vaccines Aged Out No longer eligible based on patient's age to complete this topic Procedures Procedure Name Priority Date/Time Associated Diagnosis Comments LIPID PANEL WITH REFLEX TO DIRECT LDL Routine 07/06/2024 1:59 PM EST Primary hypertension COMPREHENSIVE METABOLIC PANEL Routine 07/06/2024 1:59 PM EST Hypercholesterolemia Encounter for long-term (current) use of medications FALLS RISK ASSESSMENT Routine 12/02/2023 COLONOSCOPY Routine 04/25/2022 DXA BONE DENSITY STUDY 1+ SITS AXIAL SKEL Routine 04/20/2021 4:32 PM EDT Other specified disorders of bone density and structure, unspecified site Asymptomatic menopausal state HEPATITIS C SCREENING Routine 12/19/2012 from Last 3 Months or Most Recently Relevant to Health Maintenance Results * Lipid panel with reflex to direct LDL (07/06/2024 1:59 PM EST) Cholesterol 192 0 - 200 mg/dL LAB CHEMISTRY METHOD 07/06/2024 5:[address] [facility] Triglycerides 125 0 - 150 mg/dL LAB CHEMISTRY METHOD 07/06/2024 5:[address] [facility] HDL 80 >=40 mg/dL LAB CHEMISTRY METHOD 07/06/2024 5:02 PM [facility] LDL Calculated 87 0 - 100 mg/dL LAB CHEMISTRY METHOD 07/06/2024 5:02 PM [facility] VLDL Cholesterol Newton 25 mg/dL LAB CHEMISTRY METHOD 07/06/2024 5:[address] [facility] Non HDL Chol. (LDL+VLDL) 112 <145 mg/dL LAB CHEMISTRY METHOD 07/06/2024 5:[address] [facility] Chol/HDL Ratio 2.4 0.0 - 4.4 LAB CHEMISTRY METHOD 07/06/2024 5:02 PM [facility] Blood Venous blood specimen / Unknown Venipuncture / Unknown 07/06/2024 1:59 PM EST 07/06/2024 1:59 PM EST us Jourdan Estrella MD LAB BLOOD ORDERABLES Final Resu lt [facility] [address] [place] [address], [place] [phone] * (ABNORMAL) Comprehensive metabolic panel (07/06/2024 1:59 PM EST) Sodium 139 133 - 145 mmol/L LAB CHEMISTRY METHOD 07/06/2024 5:02 PM [facility] Potassium 4.2 3.5 - 5.5 mmol/L LAB CHEMISTRY METHOD 07/06/2024 5:02 PM [facility] Chloride 104 96 - 110 mmol/L LAB CHEMISTRY METHOD 07/06/2024 5:02 PM [facility] CO2 33(H) 21 - 32 mmol/L LAB CHEMISTRY METHOD 07/06/2024 5:02 PM [facility] Anion Gap 2(L) 3 - 11 LAB CHEMISTRY METHOD 07/06/2024 5:02 PM [facility] Glucose 90 70 - 100 mg/dL LAB CHEMISTRY METHOD 07/06/2024 5:02 PM [facility] BUN 17 5 - 25 mg/dL LAB CHEMISTRY METHOD 07/06/2024 5:02 PM [facility] Creatinine 0.73 0.50 - 1.10 mg/dL LAB CHEMISTRY METHOD 07/06/2024 5:02 PM [facility] eGFR 85 >=60 mL/min/1. 73m2 LAB CHEMISTRY METHOD 07/06/2024 5:02 PM [facility] Comment:Calculation based on the??Chronic Kidney Disease Epidemiology Collaboration (CKD-EPI) equation refit??without adjustment for race. BUN/Creatinine Ratio 23.3 LAB CHEMISTRY METHOD 07/06/2024 5:02 PM [facility] Calcium 9.8 8.5 - 10.5 mg/dL LAB CHEMISTRY METHOD 07/06/2024 5:02 PM [facility] AST (SGOT) 20 10 - 42 unit/L LAB CHEMISTRY METHOD 07/06/2024 5:02 PM [facility] ALT (SGPT) 25 10 - 60 unit/L LAB CHEMISTRY METHOD 07/06/2024 5:02 PM [facility] Alkaline Phosphatase 42 42 - 121 unit/L LAB CHEMISTRY METHOD 07/06/2024 5:02 PM [facility] Total Protein 7.1 6.0 - 8.0 g/dL LAB CHEMISTRY METHOD 07/06/2024 5:[address] [facility] Albumin 4.0 3.2 - 5.0 g/dL LAB CHEMISTRY METHOD 07/06/2024 5:[address] [facility] Total Bilirubin 0.6 0.0 - 1.4 mg/dL LAB CHEMISTRY METHOD 07/06/2024 5:[address] [facility] Blood Venous blood specimen / Unknown Venipuncture / Unknown 07/06/2024 1:59 PM EST 07/06/2024 1:59 PM EST Jourdan Estrella MD LAB BLOOD ORDERABLES Final Resu lt [facility] [address] [place] [address], * Falls Risk Assessment (12/02/2023) Falls Risk Assessment Abstracted Historical Provider HEALTH MAINTENANCE Final Result * Colonoscopy (04/25/2022) Colonoscopy No interpretation with ,abstracted Anatomical Region Laterality Modality Other Historical Provider HEALTH MAINTENANCE Final Result * DXA BONE DENSITY STUDY 1+ SITS AXIAL SKEL (04/20/2021 4:32 PM EDT) Anatomical Region Laterality Modality Bone Densitometr y 09/26/2020 4:50 PM EDT Narrative 04/20/2021 5:53 PM EDT Clinical history: disorder of bone or cartilage Scans of the lumbar spine and hips were performed on a [employer] [facility] [employer] fan beam bone densitometer. ? Bone mineral density measurements and associated T and Z scores respectively are as follows: Lumbar Spine: L1-L4 BMD: 1.119 g/cm2 ? T-Score: 1.3 ? Z-Score: 3.7 Compared with the prior study dated 02/15/2019, the BMD reading has increased which is statistically significant Left Proximal Femur: Neck BMD: 0.734 g/cm2 ? T-Score: -1.0 ?? Z-Score: 1.0 Total BMD: 0.773 g/cm2 ? T-Score: -1.4 ?Z-Score: 0.4 Compared with the prior study the mean BMD reading in the total left hip has increased which is statistically significant Compared with standards for the young adult, lowest measured bone density places the patient in the W.H.O. osteopenic range. FRAX 10 year probability of major osteoporotic fracture: 28% FRAX 10 year probability of hip fracture: 5.1% IMPRESSION: IMPRESSION: Osteopenia. The NOF guidelines recommend that FDA approved medical therapies be considered in postmenopausal women and men age >50 years with a: i. Hip or vertebral (clinical or morphometric) fracture ii. T score of < -2.5 at the spine or hip iii. 10 year fracture probability by FRAX of >3% for hip fracture, or >20% for major osteoporotic fracture PLEASE NOTE: ?? W.H.O. classification is based on lowest measured density at the spine, femoral neck, or total hip.This classification has prognostic significance when applied to post menopausal women and older men. 1) ??The World Health Organization defines low BMD as follows: ?T-score ? Normal ? at or > -1 Osteopenia ? < -1 and ??> - 2.5 Osteoporosis ? at or < -2.5 without fractures Established osteoporosis ? < -2.5 with fractures Procedure Note Jairon Elizondo MD - 06/25/2022 Clinical history: disorder of bone or cartilage Scans of the lumbar spine and hips were performed on a [employer] beam bone densitometer. Bone mineral density measurements and associated T and Z scoresrespectively are as follows: Lumbar Spine: L1-L4 BMD: 1.119 g/cm2 T-Score: 1.3 Z-Score: 3.7 Compared with the prior study dated 02/15/2019, the BMD reading hasincreased which is statistically significant Left Proximal Femur: Neck BMD: 0.734 g/cm2 T-Score: -1.0 Z-Score: 1.0 Total BMD: 0.773 g/cm2 T-Score: -1.4 Z-Score: 0.4 Compared with the prior study the mean BMD reading in the total left hiphas increased which is statistically significant Compared with standards for the young adult, lowest measured bone densityplaces the patient in the W.H.O. osteopenic range. FRAX 10 year probability of major osteoporotic fracture: 28% FRAX 10 year probability of hip fracture: 5.1% IMPRESSION: IMPRESSION: Osteopenia. The NOF guidelines recommend that FDA approved medical therapies beconsidered in postmenopausal women and men age >50 years with a: i. Hip or vertebral (clinical or morphometric) fracture ii. T score of < -2.5 at the spine or hip iii. 10 year fracture probability by FRAX of >3% for hip fracture, or >20%for major osteoporotic fracture PLEASE NOTE: W.H.O. classification is based on lowest measured density at the spine,femoral neck, or total hip.This classification has prognostic significance when applied to postmenopausal women and older men. 1) The World Health Organization defines low BMD as follows: T-score Normal at or > -1 Osteopenia < -1 and > -2.5 Osteoporosis at or < -2.5 withoutfractures Established osteoporosis < -2.5 with fractures us Jourdan Estrella MD [facility] [place] DXA PROCEDURES Final Result * Hepatitis C Screening (12/19/2012) Hepatitis C Screening Abstracted us Historical Provider HEALTH MAINTENANCE Final Result from Last 3 Months or Most Recently Relevant to Health Maintenance Insurance MEDICARE [facility] Care Teams Fine Craft Artist Relationship Specialty Start Date End Date Jourdan Estrella MD [address] [place] [phone] PCP - General Internal Medicine 01/13/20
[2024-08-21 13:33] LABS: MANUAL DIFF FLAG NO
[2024-08-21 13:37] LABS: Basophils Absolute Auto 0.1 X10*3/uL (0.0-0.2); Basophils Percent Auto 0.7 % (0-2); Eosinophils Absolute Auto 0.2 X10*3/uL (0.0-0.4); Eosinophils Percent Auto 2.3 % (0-4); Hemoglobin 13.9 g/dl (12.0-16.0); Imm Gran Abs Auto 0.03 X10*3/uL (0.00-0.03); Imm Gran Pct Auto 0.3 % (0.0-0.4); Lymphocytes Absolute Auto 3.6 X10*3/uL (1.2-4.9); Mean Corpuscular HGB Conc 33.9 g/dl (31.0-35.0); Mean Corpuscular Hemoglobin 31.9 pg (27.0-33.0); Mean Platelet Volume 12.2 fL (9.4-12.3); Monocytes Absolute Auto 0.9 X10*3/uL (0.1-1.2); Monocytes Percent Auto 8.8 % (2-11); Neutrophils Percent Auto 50.9 % (45-73); Platelet Count 158 X10*3/uL (160-400); Red Blood Count 4.36 X10*6/uL (4.20-5.50); Red Cell Distribution Width 13.8 % (11.0-16.0); White Blood Count 9.8 X10*3/uL (4.8-10.8)
[2024-08-21 13:51] LABS: Alanine Aminotransferase 19 U/L (0-31); Albumin Level 4.3 g/dL (3.5-5.0); Alkaline Phosphatase 39 U/L (39-117); Anion Gap 14 (12-20); Aspartate Amino Transferase 23 U/L (5-31); Bilirubin Total 0.8 mg/dL (0.0-1.0); Blood Urea Nitrogen 22 mg/dL (9-16); C Reactive Protein < 0.10 mg/dL (< or = 0.50); Calcium 9.5 mg/dL (8.4-10.2); Carbon Dioxide 28 mmol/L (22-29); Chloride 102 mmol/L (96-108); Estimated Glomerular Filt Rate > 60; Glucose Random 88 mg/dL (60-115); Potassium 4.1 mmol/L (3.3-5.1); Sodium 140 mmol/L (135-145); Total Protein 7.7 g/dL (6.5-8.0)
[2024-08-21 14:27] LABS: Erythrocyte Sedimentation Rate 6 MM/HR (0-20)
[2024-08-26 20:09] LABS: Vitamin D 25-OH, D2 <4 ng/mL; Vitamin D 25-OH, D3 28 ng/mL; Vitamin D 25-OH, Total 28 ng/mL (30-100)
== END 2024-08-21 10:26 | disposition home or self-care (01) ==
LOC: HO.HMGCLDS 10:25
PROVIDERS: PCP Internal Medicine; Visit Provider Student in an Organized Health Care Education/Training Program
DX: M06.09 Rheumatoid arthritis without rheumatoid factor, multiple sites (principal); E55.9 Vitamin D deficiency, unspecified; Z79.899 Other long term (current) drug therapy
CPT/HCPCS: 36415; 80053; 82306; 85025; 85652; 86140

== ENCOUNTER 2024-08-25 09:06 | Outpatient (REF) | payer MEDICARE, OTHER, SELFPAY ==
--- OUTSIDE RECORDS SUMMARY | 2024-08-25 09:18 | XMS_ITS | Clinical Summary ---
Author Organization [address] Address [address] [place] [phone] Phone Care Team Providers Care Prime Broker Name Role Phone Jourdan Estrella MD Primary Care Provider [phone] Allergies Active Allergy Reactions Criticality Noted Date [...] dilatation 10/10/2017 Overview (04/21/2024): 9 mm on [facility] CAT scan of 09/29/2017 [facility] records reviewed 05/27/2018, 1 year follow-up MRI [...] 4:30 PM EST Office Visit Adult Medicine [address] [phone] Jourdan Estrella MD Primary hypertension (Primary Dx); Hypercholesterolemia; Encounter for long-term (current) use of medications; Gastroesophageal reflux disease without esophagitis; Seronegative rheumatoid arthritis of multiple sites ([facility]) from Last 3 Months Immunizations Name Administration [...] Surgery Date Site/Laterality Comments CHOLECYSTECTOMY 1969 PROCEDURE: [place] LAPAROSCOPY SURG CHOLECYSTECTOMY OTHER SURGICAL HISTORY PROCEDURE: [...] 09/11/2024 11:30 AM EST Appointment Radiology Department [address] [phone] Health Maintenance Due Date Last Done Comments [...] Procedure Name Priority Date/Time Associated Diagnosis Comments EXTERNAL CLINICAL LAB 08/21/2024 LIPID PANEL WITH REFLEX TO DIRECT LDL [...] Recently Relevant to Health Maintenance Results * External clinical lab (08/21/2024) Provider Onbase LAB BLOOD ORDERABLES Final Re sult * Lipid panel with reflex to direct LDL (07/06/2024 1:59 PM EST) Cholesterol 192 0 - 200 mg/dL LAB CHEMISTRY METHOD 07/06/2024 5:02 PM EST [facility] Triglycerides 125 0 - 150 mg/dL LAB CHEMISTRY METHOD 07/06/2024 5:02 PM [facility] HDL 80 >=40 mg/dL LAB CHEMISTRY METHOD 07/06/2024 5:02 PM EST [facility] LDL Calculated 87 0 - 100 mg/dL LAB CHEMISTRY METHOD 07/06/2024 5:02 PM EST [facility] VLDL Cholesterol Newton 25 mg/dL LAB CHEMISTRY METHOD 07/06/2024 5:02 PM EST [facility] Non HDL Chol. (LDL+VLDL) 112 <145 mg/dL LAB CHEMISTRY METHOD 07/06/2024 5:02 PM EST [facility] Chol/HDL Ratio 2.4 0.0 - 4.4 LAB CHEMISTRY METHOD 07/06/2024 5:02 PM [facility] Blood Venous blood specimen / Unknown Venipuncture / Unknown 07/06/2024 1:59 PM EST 07/06/2024 1:59 PM EST Jourdan Estrella MD LAB BLOOD ORDERABLES Final Resu lt [facility] [address] [place] [address], [place] [phone] * (ABNORMAL) Comprehensive metabolic panel (07/06/2024 1:59 PM EST) Sodium 139 133 - 145 mmol/L LAB CHEMISTRY METHOD 07/06/2024 5:02 PM [facility] Potassium 4.2 3.5 - 5.5 mmol/L LAB CHEMISTRY METHOD 07/06/2024 5:02 PM [facility] Chloride 104 96 - 110 mmol/L LAB CHEMISTRY METHOD 07/06/2024 5:02 PM [facility] CO2 33(H) 21 - 32 mmol/L LAB CHEMISTRY METHOD 07/06/2024 5:02 PM [facility] Anion Gap 2(L) 3 - 11 LAB CHEMISTRY METHOD 07/06/2024 5:02 PM [facility] Glucose 90 70 - 100 mg/dL LAB CHEMISTRY METHOD 07/06/2024 5:02 PM [facility] BUN 17 5 - 25 mg/dL LAB CHEMISTRY METHOD 07/06/2024 5:02 PM [facility] Creatinine 0.73 0.50 - 1.10 mg/dL LAB CHEMISTRY METHOD 07/06/2024 5:02 PM [facility] eGFR 85 >=60 mL/min/1. 73m2 LAB CHEMISTRY METHOD 07/06/2024 5:02 PM [facility] Comment:Calculation based on the??Chronic Kidney Disease Epidemiology Collaboration (CKD-EPI) equation refit??without adjustment for race. BUN/Creatinine Ratio 23.3 LAB CHEMISTRY METHOD 07/06/2024 5:02 PM [facility] Calcium 9.8 8.5 - 10.5 mg/dL LAB CHEMISTRY METHOD 07/06/2024 5:02 PM [facility] AST (SGOT) 20 10 - 42 unit/L LAB CHEMISTRY METHOD 07/06/2024 5:02 PM [facility] ALT (SGPT) 25 10 - 60 unit/L LAB CHEMISTRY METHOD 07/06/2024 5:02 PM EST [facility] Alkaline Phosphatase 42 42 - 121 unit/L LAB CHEMISTRY METHOD 07/06/2024 5:02 PM [facility] Total Protein 7.1 6.0 - 8.0 g/dL LAB CHEMISTRY METHOD 07/06/2024 5:02 PM [facility] Albumin 4.0 3.2 - 5.0 g/dL LAB CHEMISTRY METHOD 07/06/2024 5:02 PM [facility] Total Bilirubin 0.6 0.0 - 1.4 mg/dL LAB CHEMISTRY METHOD 07/06/2024 5:02 PM [facility] Blood Venous blood specimen / Unknown Venipuncture / Unknown 07/06/2024 1:59 PM EST 07/06/2024 1:59 PM EST Jourdan Estrella MD LAB BLOOD ORDERABLES Final Resu lt [facility] [address] [place] [address], * Falls Risk Assessment (12/02/2023) Falls Risk [...] spine and hips were performed on a [employer] fan beam bone densitometer. ? Bone mineral [...] spine and hips were performed on a [employer] beam bone densitometer. Bone mineral density measurements [...] withoutfractures Established osteoporosis < -2.5 with fractures Jourdan Estrella MD IMG DXA PROCEDURES Final Result * Hepatitis C Screening (12/19/2012) Hepatitis C Screening Abstracted us Historical Provider HEALTH MAINTENANCE Final Result from Last 3 Months or Most Recently Relevant to Health Maintenance Insurance MEDICARE [facility] Care Teams Prime Broker Relationship Specialty Start Date End Date Jourdan Estrella MD [address] [place] [phone] PCP - General Internal Medicine 01/13/20
[2024-08-27 21:17] LABS: TS Negative Control Passed; TS Panel A 0; TS Panel B 0; TS Positive Control Passed; TSpotTB Negative (Negative)
== END 2024-08-25 09:07 | disposition home or self-care (01) ==
LOC: HO.HMGCLDS 09:06
PROVIDERS: PCP Internal Medicine; Visit Provider Internal Medicine Rheumatology
DX: Z79.899 Other long term (current) drug therapy (principal)
CPT/HCPCS: 36415; 86481

== ENCOUNTER 2024-09-08 13:40 | Outpatient (AMB) | payer MEDICARE, OTHER, SELFPAY ==
--- NOTE | 2024-09-08 13:45 | MHC.OFFVIS ---
Vital Signs 09/08/24 13:48 Height 5 ft 1 in Weight 129 lb 6.581 oz BMI 24.4 BP 130/84 Blood Pressure Location Lt brachial Position Sitting Pulse 68 Pulse Source Pulse Oximeter Pulse Oximetry (%) 98 Oxygen Delivery Method Room Air Intake Visit Reasons: RA Intake Note: Patient presents for RA. Allergies lisinopril Allergy (Intermediate, Verified 09/08/24 13:48) Cough metoclopramide [From Reglan] Allergy (Intermediate, Verified 09/08/24 13:48) SHAKY,ANXIETY Seasonal Allergies Allergy (Intermediate, Verified 09/08/24 13:48) RUNNY NOSE HPI HPI RA: Details: When MTX dose was reduced to 10mg once weekly she had increase joint pain after last visit with Dr. Hui. She self-increased to methotrexate 12.5 mg once weekly and feels well. She is having symptoms of URI with ear pain, sinus drainage, dyspnea. Last humira was over a month ago because she did not have refill. She continues to experience pain in her right elbow with lifting things and twisting her arm. She has difficulty with using right arm due to pain. COUNT INCLUDES THE [facility] Surgical History Hx laparoscopic cholecystectomy Hx of colonoscopy Family History Father Hx of CABG Mother Asthma CHF (congestive heart failure) Sister Macular degeneration Social History Household Members Other:: lives alone Housing: Condominium Are you a primary care navigator to a significant other at home: No Do you presently have visiting nurse or other home services: No 75 years or older and lives alone: Yes Alcohol intake: current Alcohol intake frequency: holidays/special occasions only Alcohol type: wine Patient Tobacco Use Status: Former Tobacco user Years Smoked: quit 1979 e-Cigarette/Vaping Use: Never Used service: No Current occupational status: employed 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 Good respiratory effort Skin: No lesions seen MSK: Tender to palpate distal to right lateral epicondyle involving muscle bulk of proximal forearm. No swelling of elbow present. No pain with resisted wrist extension. No medial epicondyle tenderness. No synovitis of any joint. Good range of motion of upper extremities and lower extremities. No MTP tenderness. Assessment & Plan Assessment & Plan (1) Rheumatoid arthritis: Comment: Doing well on current regimen with methotrexate and Humira. Rheumatology history: Failed Hydroxychloroquine 1989.s. Methotrexate started late 1989' On Remicade and MTX since 2001; Remicade stopped spring 2007 due to sinusitis and per patient it was not effective. Humira started January 2008- Code(s): M06.9 - Rheumatoid arthritis, unspecified Category: Medical Qualifiers: Rheumatoid arthritis location: multiple sites Rheumatoid factor presence: without rheumatoid factor Qualified Code(s): M06.09 - Rheumatoid arthritis without rheumatoid factor, multiple sites Plan: Continue methotrexate 12.5 mg once weekly Continue folic acid 1 mg daily Continue Humira 40 mg subcutaneous injection every other week Labs for drug monitoring on high-risk medication up-to-date 08/21/2024 Return to clinic in 3 months (2) Right tennis elbow: Comment: Suspected with strain of proximal forearm muscles. We discussed conservative management Code(s): M77.11 - Lateral epicondylitis, right elbow Category: Medical Plan: Elbow brace prescribed Physical therapy ordered Apply ice to affected area She will also apply diclofenac gel 1% every 4-6 hours as needed Return to clinic in 3 months (3) Long-term use of immunosuppressant medication: Code(s): Z79.899 - Other half-way (current) drug therapy Category: Medical Plan: See above (4) Osteopenia: Comment: With high FRAX score. She could not tolerate alendronate in the past. 02/08/22, 03/27/23, 04/21/2024: IV zoledronic acid given Code(s): M85.80 - Other specified disorders of bone density and structure, unspecified site Category: Medical Qualifiers: Osteopenia location: multiple sites Qualified Code(s): M85.89 - Other specified disorders of bone density and structure, multiple sites Plan: Repeat bone density after March 2026. Consider drug holiday She is currently on vitamin-D supplement ergocalciferol 93881 IU weekly for a total of 12 weeks due to vitamin-D deficiency. I encouraged her to obtain calcium supplement. She has not tolerated calcium tablets in the past. She will try gummies. (5) Vitamin D deficiency: Code(s): E55.9 - Vitamin D deficiency, unspecified Category: Medical Plan: She is on ergocalciferol 94203 IU weekly for a total of 12 weeks Return to clinic in 3 months Orders: Orders PT Evaluation and Treatment Today M77.11 - Lateral epicondylitis, right elbow Medications: New arm brace As directed Right elbow support band Dx: lateral epicondylitis 1 ea 0RF diclofenac sodium 1% (Arthritis Pain (diclofenac)) apply to affected area every 4-6 hours PRN pain 2 grams topical QID 100 grams 5RF Changed From methotrexate sodium Replace prior prescriptions 10 mg (4 x 2.5 mg) PO QWEEK 48 tabs 0RF M06.9 - Rheumatoid arthritis, unspecified To methotrexate sodium Replace prior prescriptions. Increase dose. 12.5 mg (5 x 2.5 mg) PO QWEEK 84 days 60 tabs 0RF M06.9 - Rheumatoid arthritis, unspecified Coding Level of Care Code Est Pt Level 5 (16865) Diagnoses Rheumatoid arthritis of multiple sites with negative rheumatoid factor M06.09 Rheumatoid arthritis location: multiple sites Rheumatoid factor presence: without rheumatoid factor Right tennis elbow M77.11 Long-term use of immunosuppressant medication Z79.899 Osteopenia of multiple sites M85.89 Osteopenia location: multiple sites Vitamin D deficiency E55.9 Time Spent (min) 40
[2024-09-08 13:48] VITALS: BP 130/84; PULSE 68; O2SAT 98; BMI 24.4
--- OUTSIDE RECORDS SUMMARY | 2024-09-08 16:16 | XMS_ITS | Clinical Summary ---
Author Organization [address] Address [address] [place] [phone] Phone Care Team Providers Care Terminal Make Up Operator Name Role Phone Jourdan Estrella MD Primary Care Provider [phone] Allergies Active Allergy Reactions Criticality Noted Date [...] dilatation 10/10/2017 Overview (04/21/2024): 9 mm on [facility] CAT scan of 09/29/2017 [facility] records reviewed 05/27/2018, 1 year follow-up MRI [...] Encounters Date Type Department Care Team Description 09/08/2024 Telephone Adult Medicine [address] [id number] Jourdan Estrella MD ED Follow-up from Last 3 Months Immunizations Name Administration [...] Surgery Date Site/Laterality Comments CHOLECYSTECTOMY 1969 PROCEDURE: [place] LAPAROSCOPY SURG CHOLECYSTECTOMY OTHER SURGICAL HISTORY PROCEDURE: [...] Care Team (Late st Contact Info) Description 09/09/2024 8:30 AM EST Office Visit Adult Medicine [address] [phone] Shin Rousseau MD [address] [place] [id number] 09/11/2024 11:30 AM EST Appointment Radiology Department - [address] [phone] Health Maintenance Due Date Last Done Comments [...] Date/Time Associated Diagnosis Comments EXTERNAL CLINICAL LAB 08/30/2024 EXTERNAL CLINICAL LAB 08/21/2024 LIPID PANEL WITH REFLEX TO DIRECT LDL Routine 07/06/2024 1:59 PM EST Primary hypertension COMPREHENSIVE METABOLIC PANEL Routine 07/06/2024 1:59 PM EST Hypercholesterolemia Encounter for long-term (current) use of medications HM FALLS RISK ASSESSMENT Routine 12/02/2023 COLONOSCOPY Routine 04/25/2022 DXA BONE DENSITY STUDY 1+ SITS AXIAL SKEL Routine 04/20/2021 4:32 PM EDT Other specified disorders of bone density and structure, unspecified site Asymptomatic menopausal state HEPATITIS C SCREENING Routine 12/19/2012 from Last 3 Months or Most Recently Relevant to Health Maintenance Results * External clinical lab (08/30/2024) Only the most recent of2 resultswithin the time period is included. us Provider Onbase MD LAB BLOOD ORDERABLES Final Re sult * Lipid panel with reflex to direct LDL (07/06/2024 1:59 PM EST) Cholesterol 192 0 - 200 mg/dL LAB CHEMISTRY METHOD 07/06/2024 5:02 PM [facility] Triglycerides 125 0 - 150 mg/dL LAB CHEMISTRY METHOD 07/06/2024 5:02 PM [facility] HDL 80 >=40 mg/dL LAB CHEMISTRY METHOD 07/06/2024 5:02 PM [facility] LDL Calculated 87 0 - 100 mg/dL LAB CHEMISTRY METHOD 07/06/2024 5:02 PM [facility] VLDL Cholesterol [place] 25 mg/dL LAB CHEMISTRY METHOD 07/06/2024 5:02 PM [facility] Non HDL Chol. (LDL+VLDL) 112 <145 mg/dL LAB CHEMISTRY METHOD 07/06/2024 5:02 PM [facility] Chol/HDL Ratio 2.4 0.0 - 4.4 LAB CHEMISTRY METHOD 07/06/2024 5:02 PM [facility] Blood Venous blood specimen / Unknown Venipuncture / Unknown 07/06/2024 1:59 PM EST 07/06/2024 1:59 PM EST us Jourdan Estrella MD LAB BLOOD ORDERABLES Final Resu lt [facility] [address] [place] [address], [place] [phone] * (ABNORMAL) Comprehensive metabolic panel (07/06/2024 1:59 PM EST) Sodium 139 133 - 145 mmol/L LAB CHEMISTRY METHOD 07/06/2024 5:02 PM [facility] Potassium 4.2 3.5 - 5.5 mmol/L LAB CHEMISTRY METHOD 07/06/2024 5:02 PM [facility] Chloride 104 96 - 110 mmol/L LAB CHEMISTRY METHOD 07/06/2024 5:02 PM [facility] CO2 33(H) 21 - 32 mmol/L LAB CHEMISTRY METHOD 07/06/2024 5:02 PM [facility] Anion Gap 2(L) 3 - 11 LAB CHEMISTRY METHOD 07/06/2024 5:02 PM [facility] Glucose 90 70 - 100 mg/dL LAB CHEMISTRY METHOD 07/06/2024 5:02 PM [facility] BUN 17 5 - 25 mg/dL LAB CHEMISTRY METHOD 07/06/2024 5:02 PM [facility] Creatinine 0.73 0.50 - 1.10 mg/dL LAB CHEMISTRY METHOD 07/06/2024 5:02 PM [facility] eGFR 85 >=60 mL/min/1. 73m2 LAB CHEMISTRY METHOD 07/06/2024 5:02 PM [facility] Comment:Calculation based on the??Chronic Kidney Disease Epidemiology Collaboration (CKD-EPI) equation refit??without adjustment for race. BUN/Creatinine Ratio 23.3 LAB CHEMISTRY METHOD 07/06/2024 5:02 PM [facility] Calcium 9.8 8.5 - 10.5 mg/dL LAB CHEMISTRY METHOD 07/06/2024 5:02 PM [facility] AST (SGOT) 20 10 - 42 unit/L LAB CHEMISTRY METHOD 07/06/2024 5:02 PM [facility] ALT (SGPT) 25 10 - 60 unit/L LAB CHEMISTRY METHOD 07/06/2024 5:02 PM [facility] Alkaline Phosphatase 42 42 - 121 unit/L LAB CHEMISTRY METHOD 07/06/2024 5:02 PM [facility] Total Protein 7.1 6.0 - 8.0 g/dL LAB CHEMISTRY METHOD 07/06/2024 5:02 PM [facility] Albumin 4.0 3.2 - 5.0 g/dL LAB CHEMISTRY METHOD 07/06/2024 5:02 PM [facility] Total Bilirubin 0.6 0.0 - 1.4 mg/dL LAB CHEMISTRY METHOD 07/06/2024 5:02 PM [facility] Blood Venous blood specimen / Unknown Venipuncture / Unknown 07/06/2024 1:59 PM EST 07/06/2024 1:59 PM EST Jourdan Estrella MD LAB BLOOD ORDERABLES Final Resu lt [facility] [address] [place] [address], * Falls Risk Assessment (12/02/2023) Falls Risk Assessment Abstracted Historical Provider HEALTH MAINTENANCE Final Result * Colonoscopy (04/25/2022) Colonoscopy No interpretation with ,abstracted Anatomical Region Laterality Modality Other us Historical Provider HEALTH MAINTENANCE Final Result * DXA BONE DENSITY STUDY 1+ SITS AXIAL SKEL (04/20/2021 4:32 PM EDT) Anatomical Region Laterality Modality Bone Densitometr y 09/26/2020 4:50 PM EDT Narrative 04/20/2021 5:53 PM EDT Clinical history: disorder of bone or cartilage Scans of the lumbar spine and hips were performed on a [employer] fan beam bone densitometer. ? Bone mineral [...] spine and hips were performed on a [employer] beam bone densitometer. Bone mineral density measurements [...] C Screening (12/19/2012) Hepatitis C Screening Abstracted Historical Provider HEALTH MAINTENANCE Final Result from Last 3 Months or Most Recently Relevant to Health Maintenance Insurance [address] [place] [address] MEDICARE [facility] Care Teams Terminal Make Up Operator Relationship Specialty Start Date End Date Jourdan Estrella MD [address] [place] [id number] PCP - General Internal Medicine 01/13/20
--- OUTSIDE RECORDS SUMMARY | 2024-09-08 16:16 | XMS_ITS | Encounter Summary ---
Author Organization [facility] Address [address] [place] [address] Care Team Providers Care Carbider Name Role Phone Jourdan Estrella MD Primary Care Provider [phone] Reason for Visit * Reason Onset Date Comments ED Follow-up 09/08/2024 Encounter Details Date Type Department Care Team (Late st Contact Info) Description 09/08/2024 Telephone Adult Medicine [address] [phone] Jourdan Estrella MD [address] [place] [phone] ED Follow-up Social History Tobacco Use Types Packs/Day Years Used Date Smoking Tobacco: Former Cigarettes 3 20 0 07/07/1961 - 07/08/1981 Smokeless Tobacco: Never Alcohol Use Standard Drinks/Week Comments Yes 0 (1 standard drink = 0.6 oz pur e alcohol) Comments Unknown Sex and Gender Information Value Date Recorded Sex Assigned at Not on file Legal Sex Female 7:40 AM EST Gender Identity Not on file Sexual Orientation Not on file documented as of this encounter Progress Notes * Luly Doyle RN - 09/08/2024 11:41 AM EST Called and spoke to pt. She states she has had a cold for 3-4 weeks. She is on Methotrexate and Humira and is prone to sinus infections and URI's. She went to an [facility] in [place] on 08/25/24. She tested negative for Covid and Strep. She was prescribed an antibiotic and prednisone. She completed both medications but continues to have head congestion, ear congestion, sore throat and white spots on her tongue. No fever. An appointment was made for her to be seen in the office tomorrow at 8:[address] Rousseau and she is in agreement with this plan. She will bring the paperwork from the [facility] with her to the appointment. * Elmer Smith - 09/08/2024 11:11 AM EST Hospital/ER follow up appointment needed Hospital patient was treated at: [facility] Was this only an ER visit or was the patient admitted to the hospital? ER Visit only Date of visit if ER visit only: 08/25/24 If patient was admitted what was the date of discharge? Reason/diagnosis for visit or stay: uri symptoms - possible sinus infection - still has severe symptoms after antibiotics When was the patient told to follow up? Was visit or stay related to an injury? If yes, what was the date of injury (DOI)? No If yes, was the injury due to: Not 3rd democrat related documented in this encounter Plan of Treatment Upcoming Encounters Date Type Department Care Team (Late st Contact Info) Description 09/09/2024 8:30 AM EST Office Visit Adult Medicine [facility] - [address] [phone] Shin Rousseau MD [address] [place] [address] 09/11/2024 11:30 AM EST Appointment Radiology Department - [address] [phone] documented as of this encounter Visit Diagnoses Not on filedocumented in this encounter Care Teams Carbider Relationship Specialty Start Date End Date Jourdan Estrella MD [address] [place] [phone] PCP - General Internal Medicine 01/13/20 documented as of this encounter
== END 2024-09-08 14:29 | disposition home or self-care (01) ==
PROVIDERS: PCP Internal Medicine; Visit Provider Internal Medicine Rheumatology
DX: M06.09 Rheumatoid arthritis without rheumatoid factor, multiple sites (principal); M77.11 Lateral epicondylitis, right elbow; Z79.899 Other long term (current) drug therapy; M85.89 Other specified disorders of bone density and structure, multiple sites; E55.9 Vitamin D deficiency, unspecified
CPT/HCPCS: 99214

== ENCOUNTER → 2024-09-08 13:40 | Outpatient (BNVA) | payer MEDICARE, OTHER, SELFPAY | PROVIDERS: PCP Internal Medicine; Visit Provider Internal Medicine Rheumatology | DX: M06.09 Rheumatoid arthritis without rheumatoid factor, multiple sites (principal); M77.11 Lateral epicondylitis, right elbow; M85.89 Other specified disorders of bone density and structure, multiple sites; E55.9 Vitamin D deficiency, unspecified; Z79.899 Other long term (current) drug therapy | CPT/HCPCS: 99212 ==

== ENCOUNTER 2024-12-03 07:00 | Outpatient (RCR) | payer MEDICARE, OTHER, SELFPAY ==
--- NOTE | 2024-11-01 08:29 | MHC.OT.EP ---
[address] [phone] Occupational Therapy Plan of Care Patient Name: Tyrone Moore Date of Evaluation: 11/01/24 Diagnosis: Right tennis elbow Pain Location: 1/10 resting tightness 8/10 sharp pain with forceful use enough to stop me from what I'm doing Pain Score: 8 Pain Scale Used: Numeric (0 - 10) Aggravating Factors: Forecful use, works tasks, sleep positions Alleviating Factors: Ibuprofen, Tylenol, trialed CFB but found no relief Assessment: 79 yo female presents to OT w/ right lateral elbow pain for the past 4-5 months. She had worsening of symptoms and then some relief while being mindful of position, but still very persistent. On assessment today, she reports pain from 1/10 resting to 8/10 w/ forceful use, and pain radiates dorsal forearm into lateral elbow and up into biceps. She reports radial nerve symptoms as well with some irritation of the radial sensory nerve. Symptoms are consistent with mild lateral tennis elbow and radial nerve irritation. We will continue outpatient hand therapy for reduction of pain w. focus on muscle re-balance and activity modifcation. Frequency and Duration: The patient will be seen 2x/wk for 4 weeks Short Term Goals: Ind w/ HEP Ind w/ nighttime orthosis wear Good mindfulness of right UE movements w/ work tasks Pain free rest and sleeping in right UE Developmental Writing Instructor Goals: Pt to complete moderate bimanual tasks (cooking, cleaning, typing) with zero to low pain Ind w/ progression of strengthening QuickDASH score <25 pts Treatment Plan: Therapeutic Exercise Therapeutic Activity Home Exercise Program Splinting Neuro Re-ed Patient Education Edema Control ADL Training Ultrasound Iontophoresis MHP Joint Mobilization Soft Tissue Mobilization Kinesiotaping Into w/ dexamethasone Electronically Signed By: Jesi Felder, OTR/L CHT Please Sign and return to therapist. Thank you once again for your referral.
--- NOTE | 2024-12-03 10:30 | MHC.OT.DC ---
[address] [phone] F: [phone] Occupational Therapy Discharge Note Patient Name: Tyrone Mooer Provider: Obed Cueva Diagnosis: Right tennis elbow (radial nerve irritation) Date of Evaluation: 11/01/24 Date of Discharge: 12/03/24 Treatments to Date: 10 Discharge Status: Improved Function Independent with HEP Discharge Summary: Tyrone was referred to OT w/ right elbow and forearm pain. She is reporting overall improvements but still having difficulty w/ twisting movements (doors, mouse). She is now able to sleep through night and has improving work ability w/ modified mouse. She is Ind w/ home program, will continue w/ self management. Electronically Signed By: ABY Pulliam/Tyson CHT Reviewed/agree with student documentation: Therapist: Please Sign and return to therapist, thank you for your referral.
== END 2024-12-03 10:31 | disposition home or self-care (01) ==
LOC: HO.OT 07:00
PROVIDERS: PCP Internal Medicine; Visit Provider Internal Medicine Rheumatology
DX: M77.11 Lateral epicondylitis, right elbow (principal)
CPT/HCPCS: 97033; 97110; 97140; 97165

== ENCOUNTER 2024-12-04 10:45 | Outpatient (REF) | payer MEDICARE, OTHER, SELFPAY ==
[2024-12-04 13:38] LABS: Baso%MD 0.6 %; Eos%MD 1.7 %; Hematocrit 41.3 % (37.0-47.0); Hemoglobin 14.2 g/dl (12.0-16.0); IG%MD 0.3 %; Mean Corpuscular HGB Conc 34.4 g/dl (31.0-35.0); Mean Corpuscular Hemoglobin 31.4 pg (27.0-33.0); Mean Corpuscular Volume 91.4 fL (80.0-98.0); Mean Platelet Volume 11.9 fL (9.4-12.3); Mono%MD 7.7 %; Neut%MD 48.7 %; Platelet Count 185 X10*3/uL (160-400); Red Blood Count 4.52 X10*6/uL (4.20-5.50); Red Cell Distribution Width 13.5 % (11.0-16.0)
[2024-12-04 13:59] LABS: Alanine Aminotransferase 28 U/L (0-31); Aspartate Amino Transferase 27 U/L (5-31); C Reactive Protein < 0.04 mg/dL (< or = 0.50); Estimated Glomerular Filt Rate > 60
[2024-12-04 14:07] LABS: Band Neutrophils Percent 0 % (3-5); Eosinophils Absolute Manual 0.4 X10*3/uL (0.0-0.4); Eosinophils Percent Manual 4 % (0-4); Lymphocytes Absolute Manual 3.9 X10*3/uL (1.2-4.9); Lymphocytes Percent Manual 39 % (20-40); Monocytes Absolute Manual 0.5 X10*3/uL (0.1-1.2); Monocytes Percent Manual 5 % (2-11); Neutrophils Absolute Manual 5.2 X10*3/uL (2.0-8.3); Neutrophils Percent Manual 52 % (45-73)
[2024-12-04 14:08] LABS: Platelet Estimate NORMAL (NORMAL); Platelet Morphology Comment NORMAL; RBC Morphology NORMAL
[2024-12-04 14:17] LABS: Erythrocyte Sedimentation Rate 7 MM/HR (0-20)
== END 2024-12-04 10:46 | disposition home or self-care (01) ==
LOC: HO.HMGCLDS 10:45
PROVIDERS: PCP Internal Medicine; Visit Provider Internal Medicine Rheumatology
DX: M06.09 Rheumatoid arthritis without rheumatoid factor, multiple sites (principal)
CPT/HCPCS: 36415; 82565; 84450; 84460; 85007; 85027; 85652; 86140

== ENCOUNTER 2024-12-29 08:02 | Outpatient (AMB) | payer MEDICARE, OTHER, SELFPAY ==
[2024-12-29 08:05] VITALS: BP 140/80; PULSE 66; O2SAT 94; BMI 26.4
--- NOTE | 2024-12-29 08:05 | A.OFFVIS_ITS ---
Vital Signs 12/29/24 08:05 Height 5 ft 1 in Weight 140 lb BMI 26.4 BP 140/80 H Blood Pressure Location Rt brachial Position Sitting Pulse 66 Pulse Source Pulse Oximeter Pulse Oximetry (%) 94 Oxygen Delivery Method Room Air Intake Visit Reasons: 3 Months Intake Note: Patient presents for RA. Allergies lisinopril Allergy (Intermediate, Verified 12/29/24 08:06) Cough metoclopramide (From Reglan) Allergy (Intermediate, Verified 12/29/24 08:06) SHAKY,ANXIETY Seasonal Allergies Allergy (Intermediate, Verified 12/29/24 08:06) RUNNY NOSE HPI HPI 3 Months: Details: Pain in right elbow improved with PT. Pain with certain moments with certain mo ments. Pain is 4/10 reduced from 10/10. No infections. PFSH Surgical History Hx laparoscopic cholecystectomy Hx of colonoscopy Family History Father Hx of CABG Mother Asthma CHF (congestive heart failure) Sister Macular degeneration Social History Household Members Other:: lives alone Housing: Condominium Are you a primary career guidance technician to a significant other at home: No Do you presently have visiting nurse or other home services: No 75 years or older and lives alone: Yes Alcohol intake: current Alcohol intake frequency: holidays/special occasions only Alcohol type: wine Patient Tobacco Use Status: Former Tobacco user Years Smoked: quit 1979 e-Cigarette/Vaping Use: Never Used service: No Current occupational status: employed 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 Good respiratory effort Skin: No lesions seen MSK: Tender to palpate distal to right lateral epicondyle involving muscle bulk of proximal forearm. No swelling of elbow present. No pain with resisted wrist extension. No medial epicondyle tenderness. No synovitis of any joint. Good range of motion of upper extremities and lower extremities. No MTP tenderness. Assessment & Plan Assessment & Plan (1) Rheumatoid arthritis: Comment: In remission on in remission on methotrexate and Humira. Rheumatology history: Failed Hydroxychloroquine 1989.s. Methotrexate started late On Remicade and MTX since 2001; Remicade stopped spring 2007 due to sinusitis and per patient it was not effective. Humira started January 2008- Code(s): M06.9 - Rheumatoid arthritis, unspecified Category: Medical Qualifiers: Rheumatoid arthritis location: multiple sites Rheumatoid factor presence: without rheumatoid factor Qualified Code(s): M06.09 - Rheumatoid arthritis without rheumatoid factor, multiple sites Plan: Continue methotrexate 12.5 mg once weekly Continue folic acid 1 mg daily Continue Humira 40 mg subcutaneous injection every other week Labs for drug monitoring on high-risk medication up-to-date 12/18/2024 Return to clinic in 3 months (2) Right tennis elbow: Comment: Suspected with strain of proximal forearm muscles. Improved with physical therapy. Code(s): M77.11 - Lateral epicondylitis, right elbow Category: Medical Plan: Wear elbow brace prescribed Continue PT exercises Apply ice to affected area twice a day She will also apply diclofenac gel 1% every 4-6 hours as needed at least twice a day. After 2 weeks if there is no improvement, she will try OTC Aleve twice a day Return to clinic in 3 months (3) Long-term use of immunosuppressant medication: Code(s): Z79.899 - Other intermediate project manager (current) drug therapy Category: Medical Plan: See above (4) Osteopenia: Comment: With high FRAX score. She could not tolerate alendronate in the past. 02/08/22, 03/27/23, 04/21/2024: IV zoledronic acid given Code(s): M85.80 - Other specified disorders of bone density and structure, unspecified site Category: Medical Qualifiers: Osteopenia location: multiple sites Qualified Code(s): M85.89 - Other specified disorders of bone density and structure, multiple sites Plan: Repeat bone density after March 2026. Consider drug holiday She completed ergocalciferol 12 week course for treatment of vitamin-D deficiency We will check vitamin-D level with next set of labs (5) Vitamin D deficiency: Code(s): E55.9 - Vitamin D deficiency, unspecified Category: Medical Plan: She completed ergocalciferol 12 week course for vitamin-D deficiency I will check vitamin-D level with next set of labs Return to clinic in 3 months Orders: Orders Complete Blood Count Man Dif 3 Months M06.09 - Rheumatoid arthritis without rheumatoid factor, multiple sites, Z79.899 - Other intermediate project manager (current) drug t herapy Alanine Aminotransferase 3 Months M06.09 - Rheumatoid arthritis without rheumatoid factor, multiple sites, Z79.899 - Other assisted (current) drug therapy Aspartate Amino Transferase 3 Months M06.09 - Rheumatoid arthritis without rheumatoid factor, multiple sites, Z79.899 - Other assisted (current) drug therapy Creatinine 3 Months M06.09 - Rheumatoid arthritis without rheumatoid factor, multiple sites, Z79.899 - Other assisted (current) drug therapy C Reactive Protein 3 Months M06.09 - Rheumatoid arthritis without rheumatoid factor, multiple sites, Z79.899 - Other assisted (current) drug therapy Vitamin D 25-OH Total 3 Months E55.9 - Vitamin D deficiency, unspecified, M06.09 - Rheumatoid arthritis without rheumatoid factor, multiple sites, M85.89 - Other specified disorders of bone density and structure, multiple sites, Z79.899 - Other intermediate project manager (current) drug therapy Erythrocyte Sedimentation Rate 3 Months M06.09 - Rheumatoid arthritis without rheumatoid factor, multiple sites, Z79.899 - Other assisted (current) drug therapy XR DEXA appendicular skeleton 3 Months M06.09 - Rheumatoid arthritis without rheumatoid factor, multiple sites, M85.89 - Other specified disorders of bone de nsity and structure, multiple sites XR DEXA axial skeleton 3 Months M06.09 - Rheumatoid arthritis without rheumatoid factor, multiple sites, M85.89 - Other specified disorders of bone density and structure, multiple sites Medications: Refilled Humira(CF) Pen (adalimumab) 40 mg (0.4 mL) subcut Q2W 2 ea 2RF NS M06.9 - Rheumatoid arthritis, unspecified Coding Level of Care Code Est Pt Level 4 (44754) Complex EM visit Add On G2211 Diagnoses Rheumatoid arthritis of multiple sites with negative rheumatoid factor M06.09 Rheumatoid arthritis location: multiple sites Rheumatoid factor presence: without rheumatoid factor Right tennis elbow M77.11 Long-term use of immunosuppressant medication Z79.899 Osteopenia of multiple sites M85.89 Osteopenia location: multiple sites Vitamin D deficiency E55.9
--- OUTSIDE RECORDS SUMMARY | 2024-12-29 08:13 | XMS_ITS | Clinical Summary ---
Author Organization [address] Address [address] [place] [phone] Phone Care Team Providers Care Engineering Program Analyst Name Role Phone Jourdan Estrella MD Primary Care Provider [phone] Allergies Active Allergy Reactions Criticality Noted Date Comments Lisinopril 09/01/2020 Cough Metoclopramide Hcl Palpitations 06/09/2017 Shaking and Anxiety Sx Other Runny nose 11/16/2010 Medications adalimumab (Humira,CF, Pen) 40 mg/0.4 mL pen 0.4 mL (40 mg total). Inject 40 mg into the skin every 14 days. 1 Active folic acid (FOLVITE) 1 mg tablet [...] BEFORE BREAKFAST 90 capsule 1 5 Active nystatin (MYCOSTATIN) 100,000 unit/mL suspensionIndic ations:Oral thrush Take 4 mL by mouth 4 (four) times a day. Swish in mouth and spit out. 280 mL 5 Active atenoloL (TENORMIN) 50 mg tablet Take 1 tablet (50 mg total) by mouth 1 (one) time each day. 90 tablet 1 5 Active atorvastatin (LIPITOR) 10 mg tablet Take 1 tablet (10 mg total) by mouth 1 (one) time each day. 90 tablet 1 5 Active hydroCHLOROthia zide (HYDRODIURIL) 25 mg tablet Take 1 tablet (25 mg total) by mouth 1 (one) time each day. 90 tablet 1 5 Active losartan (COZAAR) 50 mg tablet Take 1 tablet (50 mg total) by mouth 1 (one) time each day. 90 tablet 1 5 Active fluticasone propionate (FLONASE) 50 mcg/actuation nasal spray SPRAY 2 SPRAYS BY NASAL ROUTE DAILY 48 mL 1 5 Active Active Problems Problem Noted Date Diagnosed Date Gastroesophageal reflux disease 11/13/2021 FRANCK-inhibitor cough 09/01/2020 History of COVID-19 06/15/2020 Overview (04/21/2024): URI, GI symptoms, headache Common bile duct dilatation 10/10/2017 Overview (04/21/2024): 9 mm on [facility] CAT scan of 09/29/2017 [facility] records reviewed 05/27/2018, 1 year follow-up MRI recommended by Dr. Rivera as liver function tests were normal. This would be due in October 2018. 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 Methotrexate started late s ON REMICADE AND MTX since 2001; Remicade [...] DJD at multiple levels on CT 03/2004 Immunizations Name Administration Dates Next Due H1N1 [...] Surgery Date Site/Laterality Comments CHOLECYSTECTOMY 1969 PROCEDURE: DC LAPAROSCOPY SURG CHOLECYSTECTOMY OTHER SURGICAL HISTORY PROCEDURE: [...] = 0.6 oz pur e alcohol) Comments No Sex and Gender Information Value Date Recorded Sex Assigned at Not on file Legal Sex Female 7:40 AM EST Gender Identity Not on file Sexual Orientation Not on file Obstetrics History Para Term AB IAB SAB Ectopic Multiple Livin g Live Births 3 3 3 3 Date Outcome GA Total Labor Labor/2nd/3rd Weight Sex Type Anes PTL Vivian A1 A5 Name Clin Term Term Term Last Filed Vital Signs Vital Sign Reading Time Taken Comments Blood Pressure 118/78 09/09/2024 8:42 AM EST Pulse 76 09/09/2024 8:42 AM EST Temperature 36.8 C (98.2 F) 09/09/2024 8:42 AM EST Respiratory Rate 16 09/09/2024 8:42 AM EST Oxygen Saturation - - Inhaled Oxygen Concentration - - Weight 56.7 kg (125 lb) 09/09/2024 8:42 AM EST Height 154.9 cm (5' 1 ) 09/09/2024 8:42 AM EST Body Mass Index 23.62 09/09/2024 8:42 AM EST Plan of Treatment Upcoming Encounters Date Type Department Care Team (Late st Contact Info) Description 03/31/2025 8:00 AM EDT Office Visit Adult Medicine [address] [phone] Jourdan Estrella MD [address] [place] [phone] Health Maintenance Due Date Last Done Comments RSV Immunization Adult Patients (1 - 1-dose 75+ series) 2021 Depression Screening 06/15/2022 Social Influencers of Health Screening 06/15/2022 Medicare Annual Wellness Visit 05/26/2024 05/26/2023 Falls Risk Assessment 12/01/2024 12/02/2023 COVID-19 Vaccine (9 - Pfizer risk season) 2024 06/22/2024, 03/30/2023, 11/05/2022, Additional history exists Hypertension/CHF/CAD Annual BMP Blood Test 07/06/2025 07/06/2024, [...] Completed 04/10/2024, , 04/13/2022, Additional history exists HIB Vaccines Aged Out [...] age to complete this topic Meningococcal B Vaccine Aged Out No l onger eligible based on patient's age to complete this topic RSV Immunization Patients Under 20 months Aged Out No longer eligible based on patient's age to complete this topic Varicella Vaccines Aged Out No longer eligible based on patient's age to complete this topic Procedures Procedure Name Priority Date/Time Associated Diagnosis Comments COMPREHENSIVE METABOLIC PANEL Routine 07/06/2024 1:59 PM EST Hypercholesterolemia Encounter for long-term (current) use of medications LIPID PANEL WITH REFLEX TO DIRECT LDL Routine 07/06/2024 1:59 PM EST Primary hypertension HM FALLS RISK ASSESSMENT Routine 12/02/2023 COLONOSCOPY [...] LAB CHEMISTRY METHOD 07/06/2024 5:02 PM EST [facility] Triglycerides 125 0 - 150 mg/dL LAB CHEMISTRY METHOD 07/06/2024 5:02 PM [facility] HDL 80 >=40 mg/dL LAB CHEMISTRY METHOD 07/06/2024 5:02 PM EST [facility] LDL Calculated 87 0 - 100 mg/dL LAB CHEMISTRY METHOD 07/06/2024 5:02 PM EST [facility] VLDL Cholesterol [place] 25 mg/dL LAB CHEMISTRY METHOD 07/06/2024 5:02 PM EST [facility] Non HDL Chol. (LDL+VLDL) 112 <145 mg/dL LAB CHEMISTRY METHOD 07/06/2024 5:02 PM EST [facility] Chol/HDL Ratio 2.4 0.0 - 4.4 LAB CHEMISTRY METHOD 07/06/2024 5:02 PM [facility] Blood Venous blood specimen / Unknown Venipuncture / Unknown 07/06/2024 1:59 PM EST 07/06/2024 1:59 PM EST us Jourdan Estrella MD LAB BLOOD ORDERABLES Final Resu lt [facility] [address] [place] [address], [place] [phone] * (ABNORMAL) Comprehensive metabolic panel (07/06/2024 1:59 [...] PM [facility] Comment:Calculation based on the Chronic Kidney Disease Epidemiology Collaboration (CKD-EPI) equation refit without adjustment for race. BUN/Creatinine Ratio 23.3 LAB [...] MD LAB BLOOD ORDERABLES Final Resu lt [facility] [address] [place] [address], * Falls Risk Assessment (12/02/2023) Pathologist [facility] [place] Risk Assessment Abstracted Historical Provider HEALTH [...] spine and hips were performed on a [employer] fan beam bone densitometer. Bone mineral density measurements [...] >20% for major osteoporotic fracture PLEASE NOTE: W.H.O. classification is based on lowest measured density at the spine, femoral neck, or total hip.This classification has prognostic significance when applied to post menopausal women and older men. 1) The World Health Organization defines low BMD as follows: T-score Normal at or > -1 Osteopenia < -1 and > -2.5 Osteoporosis at or < -2.5 without fractures Established osteoporosis < -2.5 with fractures Procedure Note Jairon Elizondo MD - 06/25/2022 Clinical history: disorder of bone or cartilage Scans of the lumbar spine and hips were performed on a [employer] beam bone densitometer. Bone mineral density measurements [...] < -2.5 with fractures Jourdan Estrella MD [facility] DXA PROCEDURES Final Result * Hepatitis C Screening (12/19/2012) [facility] Hepatitis C Screening Abstracted Historical Provider HEALTH MAINTENANCE Final Result from Last 3 Months or Most Recently Relevant to Health Maintenance Insurance MEDICARE [facility] Care Teams Engineering Program Analyst Relationship Specialty Start Date End Date Jourdan Estrella MD [address] [place] [address] [phone] PCP - General Internal Medicine 01/13/20
== END 2024-12-29 08:28 | disposition home or self-care (01) ==
LOC: HO.RHES 08:03
PROVIDERS: PCP Internal Medicine; Visit Provider Internal Medicine Rheumatology
DX: M06.09 Rheumatoid arthritis without rheumatoid factor, multiple sites (principal); M77.11 Lateral epicondylitis, right elbow; Z79.899 Other long term (current) drug therapy; M85.89 Other specified disorders of bone density and structure, multiple sites; E55.9 Vitamin D deficiency, unspecified
CPT/HCPCS: 99214; G2211

== ENCOUNTER → 2024-12-29 08:02 | Outpatient (BNVA) | payer MEDICARE, OTHER, SELFPAY | PROVIDERS: PCP Internal Medicine; Visit Provider Internal Medicine Rheumatology | DX: M06.09 Rheumatoid arthritis without rheumatoid factor, multiple sites (principal); M77.11 Lateral epicondylitis, right elbow; M85.89 Other specified disorders of bone density and structure, multiple sites; E55.9 Vitamin D deficiency, unspecified; Z79.899 Other long term (current) drug therapy | CPT/HCPCS: 99212 ==

== ENCOUNTER 2025-04-05 07:57 | Outpatient (REF) | payer MEDICARE, OTHER, SELFPAY ==
[2025-04-05 13:54] LABS: Baso%MD 0.5 %; Eos%MD 2.7 %; Hematocrit 41.0 % (37.0-47.0); Hemoglobin 13.4 g/dl (12.0-16.0); IG%MD 0.4 %; Lymph%MD 43.0 %; Mean Corpuscular HGB Conc 32.7 g/dl (31.0-35.0); Mean Corpuscular Hemoglobin 30.5 pg (27.0-33.0); Mean Corpuscular Volume 93.4 fL (80.0-98.0); Mono%MD 7.7 %; NRBC Abs Auto 0.000 X10*3/uL (0.0-0.012); NRBC Pct Auto 0.0 /100WBC (0.0-0.2); Neut%MD 45.7 %; Platelet Count 185 X10*3/uL (160-400); Red Blood Count 4.39 X10*6/uL (4.20-5.50); White Blood Count 9.1 X10*3/uL (4.8-10.8)
[2025-04-05 14:17] LABS: Band Neutrophils Percent 0 % (3-5); Basophils Abs Manual 0.1 X10*3/uL (0.0-0.2); Basophils Percent Manual 1 % (0-2); Eosinophils Absolute Manual 0.4 X10*3/uL (0.0-0.4); Eosinophils Percent Manual 4 % (0-4); Lymphocytes Absolute Manual 3.2 X10*3/uL (1.2-4.9); Lymphocytes Percent Manual 35 % (20-40); Monocytes Absolute Manual 0.6 X10*3/uL (0.1-1.2); Monocytes Percent Manual 7 % (2-11); Neutrophils Absolute Manual 4.8 X10*3/uL (2.0-8.3); Neutrophils Percent Manual 53 % (45-73); RBC Morphology NORMAL
[2025-04-05 16:31] LABS: Alanine Aminotransferase 38 U/L (0-31); Aspartate Amino Transferase 54 U/L (5-31); Estimated Glomerular Filt Rate > 60
== END 2025-04-05 07:58 | disposition home or self-care (01) ==
LOC: HO.HKASLDS 07:57
PROVIDERS: PCP Internal Medicine; Visit Provider Internal Medicine Rheumatology
DX: Z51.81 Encounter for therapeutic drug level monitoring (principal); M06.09 Rheumatoid arthritis without rheumatoid factor, multiple sites; M77.11 Lateral epicondylitis, right elbow; M85.89 Other specified disorders of bone density and structure, multiple sites; E55.9 Vitamin D deficiency, unspecified; Z79.631 Long term (current) use of antimetabolite agent; Z79.899 Other long term (current) drug therapy
CPT/HCPCS: 36415; 82306; 82565; 84450; 84460; 85007; 85027; 85652; 86140; 99212

== ENCOUNTER 2025-04-05 07:57 | Outpatient (AMB) | payer MEDICARE, OTHER, SELFPAY ==
--- OUTSIDE RECORDS SUMMARY | 2025-03-31 08:00 | XMS_ITS | Encounter Summary ---
Author Organization [facility] Address [address] [place] [address] Care Team Providers Care Odd Piece Checker Name Role Phone Jourdan Estrella MD Primary Care Provider [phone] Reason for Visit * Reason Comments Medicare Annual Wellness Visit Subsequen t Hypertension Encounter Details Date Type Department Care Team (Late st Contact Info) Description 03/31/2025 8:00 AM EDT Office Visit Adult Medicine [address] [phone] Jourdan Estrella MD [address] [place] [address] Encounter for subsequent annual wellness visit (AWV) in Medicare patient (Primary Dx); Gastroesophageal reflux disease without esophagitis; Seronegative rheumatoid arthritis of multiple sites ([facility] V24, [facility] V28); Primary hypertension; Hypercholesterolemia ; Encounter for long-term (current) use of medications; Other fatigue; Viral syndrome Social History Tobacco Use Types Packs/Day Years Used Date Smoking Tobacco: Former Cigarettes 3 20 0 07/07/1961 - 07/08/1981 Smokeless Tobacco: Never Alcohol Use Standard Drinks/Week Comments Yes 0 (1 standard drink = 0.6 oz pur e alcohol) Housing Instability Answer Date Recorde d Are you worried that in the next 2 months you may not have stable housing? No 03/31/2025 Food Access & Nutrition Answer Date Rec orded Do you have access to a vari ety of food including fruits and vegetables? Yes 03/31/2025 Access to Healthcare Answer Date Record ed Within the last 3 months, ho w many times did you visit the emergency department for your medical care? 1 03/31/2025 Health Literacy Answer Date Recorded How often do you need to hav e someone help you when you read instructions, pamphlets, or other written material from your doctor or pharmacy? Never 03/31/2025 Caregiver: How often do you need to have someone help you when you read instructions, pamphlets, or other written material from your doctor or pharmacy? Not on file 03/31/2025 Financial Risk Answer Date Recorded How hard is it for you to pa y for the very basics like food, housing, medical care, and air conditioning / heating? Not very hard 03/31/2025 Transportation Answer Date Recorded Has the lack of transportati on kept you from meetings, work, or from getting things needed for daily living? No Has the lack of transportati on kept you from medical appointments or from getting medications? No 03/31/2025 Social Isolation Answer Date Recorded How often do you feel lonely or isolated from th ose around you? Never 03/31/2025 Food Risk Answer Date Recorded Within the past 12 months we worried whether our food would run out before we got money to buy more. Never true 03/31/2025 Within the past 12 months th e food we bought just didn't last and we didn't have money to get more. Never true 03/31/2025 Dependent Care Answer Date Recorded Do you need help finding or paying for care for your loved ones. For example, child protective investigator or elderly care for an older adult? No 03/31/2025 Education Answer Date Recorded Do you think completing more education or training, like finishing a GED, going to college, or learning a trade, would be helpful for you? N/A 03/31/2025 Employment and Income Answer Date Recor ded During the last four weeks, have you been actively looking for work? No 03/31/2025 Living Situation Answer Date Recorded What is your living situation? Unrecognized valu e 03/31/2025 Comments No Sex and Gender Information Value Date Recorded Sex Assigned at Not on file Legal Sex Female 7:40 AM EST Gender Identity Not on file Sexual Orientation Not on file Travel History Travel Start Travel End [place] 02/18/2025 03/16/2025 documented as of this encounter Last Filed Vital Signs Vital Sign Reading Time Taken Comments Blood Pressure 150/80 03/31/2025 8:02 AM EDT provider to recheck bp Pulse 78 03/31/2025 8:02 AM EDT Temperature 36.4 C (97.6 F) 03/31/2025 8:02 AM EDT Respiratory Rate 16 03/31/2025 8:02 AM EDT Oxygen Saturation 97% 03/31/2025 8:0 2 AM EDT Inhaled Oxygen Concentration - - Weight 59.7 kg (131 lb 9.6 oz) 03/31/2025 8:02 AM EDT Height 154.9 cm (5' 1 ) 03/31/2025 8:02 AM EDT Body Mass Index 24.87 03/31/2025 8:02 AM EDT documented in this encounter Progress Notes * Jourdan Estrella MD - 03/31/2025 8:00 AM EDTAssociated Problem(s): Gastroesophageal reflux disease * Jourdan Estrella MD - 03/31/2025 8:00 AM EDTAssociated Problem(s): Seronegative rheumatoid arthritis of multiple sites ([facility] V24, [facility] V28) * Jourdan Estrella MD - 03/31/2025 8:00 AM EDTAssociated Problem(s): Hypertension Orders: Comprehensive metabolic panel; Future * Jourdan Estrella MD - 03/31/2025 8:00 AM EDT Images from the original note were not included. Medicare Annual Wellness Visit Note Patient Name: Tyrone Moore Date of : 1945 Race: White Ethnicity: Not Hispan/Lat Date of Service: 03/31/2025 Patient Care Team: Jourdan Estrella MD as PCP - General (Internal Medicine) Selena is a 79 y.o. female presenting for Medicare Annual Wellness Visit Subsequent ( ) and Hypertension HPI Patient Active Problem List Diagnosis Sciatica Seronegative rheumatoid arthritis of multiple sites ([facility] V24, [facility] V28) Osteopenia Hypertension History of COVID-19 Gastroesophageal reflux disease Common bile duct dilatation Benign neoplasm of rectum and anal canal Aortic regurgitation FRANCK-inhibitor cough Spondylosis of lumbar region without myelopathy or radiculopathy Allergies Allergen Reactions Lisinopril Cough Metoclopramide Hcl Palpitations Shaking and Anxiety Sx Other Runny nose Current Outpatient Medications Medication Instructions atenoloL (TENORMIN) 50 mg, oral, Daily atorvastatin (LIPITOR) 10 mg, oral, Daily calcium carbonate-vitamin D3 (Calcium 600 with Vitamin D3) 600 mg-10 mcg (400 unit) chewable tablet1 tablet, Daily fluticasone propionate (FLONASE) 50 mcg/actuation nasal spray SPRAY 2 SPRAYS BY NASAL ROUTE DAILY folic acid (FOLVITE) 1 mg tablet Take 1 Tablet by mouth daily. Humira(CF) Pen 40 mg hydroCHLOROthiazide (HYDRODIURIL) 25 mg, oral, Daily losartan (COZAAR) 50 mg, oral, Daily methotrexate 2.5 mg, Weekly nystatin (MYCOSTATIN) 100,000 unit/mL suspension 4 mL, oral, 4 times daily, Swish in mouth and spitout. omeprazole (PriLOSEC) [address] capsule TAKE 1 CAPSULE BY MOUTH DAILY. TAKE 30 MINUTES BEFORE BREAKFAST Past Medical History: Diagnosis Date Benign neoplasm of rectum and anal canal 06/15/2007 DX:Benign neoplasm of rectum and anal canal; COMMENT: Diminutive tubular adenoma removed at colonoscopy 06/09/2002. Negative colonoscopy 06/15/2007, no colon cancer screening needed for 7 years. Essential hypertension, benign 08/06/2006 DX:Essential hypertension, benign Fracture, humerus 04/15 DX:Fracture, humerus; COMMENT: right Gastroesophageal reflux disease 11/13/2021 DX:Gastroesophageal reflux disease Heart disease, unspecified 01/15/2006 DX:Heart disease, unspecified Other deficiencies of circulating enzymes 05/08/2005 DX:Other deficiencies of circulating enzymes Personal history of colonic polyps 2001 DX:Personal history of colonic polyps Rheumatoid arthritis(714.0) 05/08/2005 DX:Rheumatoid arthritis(714.0); COMMENT: ON REMICADE AND MTX, mtx and Humira Sciatica 05/08/2005 DX:Sciatica; COMMENT: DJD at multiple levels on CT 03/2004 Unspecified essential hypertension 01/15/2006 DX:Unspecified essential hypertension Past Surgical History: Procedure Laterality Date CHOLECYSTECTOMY 1968 PROCEDURE: CO LAPAROSCOPY SURG CHOLECYSTECTOMY COLONOSCOPY 10/20/2014 PROCEDURE: HISTORICAL COLONOSCOPY; COMMENT: 5 mm polyp at 30 cm: Tubular adenoma COLONOSCOPY 06/15/2007 PROCEDURE: HISTORICAL COLONOSCOPY; COMMENT: Negative COLONOSCOPY 06/09/2002 PROCEDURE: HISTORICAL COLONOSCOPY; COMMENT: dim rectal tub ad OTHER SURGICAL HISTORY PROCEDURE: ---- OTHER ----; COMMENT: LN removed r axilla OTHER SURGICAL HISTORY PROCEDURE: ---- OTHER ----; COMMENT: sinus surgery Social History Tobacco Use Smoking status: Former Current packs/day: 0.00 Average packs/day: 3.0 packs/day for 20.0 years (60.0 ttl pk-yrs) Types: Cigarettes Start date: 07/07/1961 Quit date: 07/08/1981 Years since quittin.7 Smokeless tobacco: Never Substance Use Topics Alcohol use: Yes Drug use: No Family History Problem Relation Name Age of Onset CABG Father age 80 Asthma Mother Heart failure Mother Macular degeneration Sister Blindness Neg Hx Cataracts Neg Hx Glaucoma Neg Hx Strabismus Neg Hx Breast cancer Neg Hx Colon cancer Neg Hx Ovarian cancer Neg Hx Immunization History Administered Date(s) Administered COVID-19 (Pfizer/Comirnaty) 12yo and older 06/22/2024 H1N1 Inj Preservative Free 06/27/2009 Influenza Quadravalent, 0.5ml (Fluad) 65yo and older 04/29/2023 Influenza trivalent, 0.5mL (Fluad) 65yo and older 04/03/2015, 03/29/2021, 04/13/2022 Influenza trivalent, 0.5mL (Fluzone High-dose) 65yo and older 04/03/2015, 05/14/2018, 04/27/2019, 03/29/2021, 04/10/2024 Influenza trivalent, 0.5mL, preservative free (Fluarix; FluLaval; Fluzone) ages 6mo and older (Afluria) 3 years and older 07/09/2005, 05/13/2006, 05/21/2007, 04/08/2009, 05/26/2010, 04/08/2011, 04/16/2012, 04/06/2013, 04/08/2014, 05/19/2018, 04/06/2020 PPD Test 01/07/2008 Pfizer (ages 12 & older) Bivalent, COVID-19 03/28/2022, 11/05/2022 Pfizer SARS-CoV-2 COVID-19, mRNA, LNP-S, preservative free 09/14/2020, 10/05/2020, 06/07/2021, 10/19/2021 Pneumococcal conjugate 13 valent (Prevnar 13, PCV13) 2mo and older 03/01/2015 Pneumococcal polysaccharide 23 valent (Pneumovax 23) 2yo and older 02/28/2010, 11/24/2018 Td Tetanus diptheria (Tdvax) 7yo and older 05/28/2019 Tdap Tetanus diptheria acellular pertussis (Boostrix; Adacel) 7yo and older 12/17/2008 Zoster recombinant (Shingrix) 19yo and older 05/27/2020, 07/29/2020 Health Maintenance Topic Date Due RSV Immunization Adult Patients (1 - 1-dose 75+ series) Never done Medicare Annual Wellness Visit 05/26/2024 Depression Screening Never done COVID-19 Vaccine (9 - Pfizer risk season) 2025 Influenza Vaccine (1) 03/07/2025 Hypertension/CHF/CAD Annual BMP Blood Test 07/06/2025 Falls Risk Assessment 03/31/2026 Social Influencers of Health Screening 03/31/2026 DTaP,Tdap,and Td Vaccines (3 - Td or Tdap) 05/28/2029 Cholesterol Screening (Lipid Panel) 07/06/2029 Osteoporosis Screening (Bone Density Screening) 04/20/2031 Colorectal Cancer Screening: Colonoscopy 04/25/2032 Pneumococcal Vaccine: 50+ Years Completed Zoster Vaccines Completed Hepatitis C Screening Completed HIB Vaccines Aged Out Hepatitis B Vaccines Aged Out IPV Vaccines Aged Out Hepatitis A Vaccines Aged Out MMR Vaccines Aged Out Varicella Vaccines Aged Out Meningococcal ACWY Vaccine Aged Out Meningococcal B Vaccine Aged Out HPV Vaccines Aged Out RSV Immunization Patients Under 20 months Aged Out Cognitive Function Assessment: Cognitive screening performed. Mini COG Clock Drawing Test: Normal Word Recall: Three Words Mini Cog Score: 5 Mini Cog Results: Negative screen for dementia Fall Screening: Fallen in the past year?: No Feels unsteady when standing or walking?: No Worries about falling?: No Calculated fall risk level: low Activity of Daily Living (ADLs): Activity of Daily Living (ADLs) Are you able to independently move around your home, with or without an assistive device such as a walker or wheelchair?: Yes Do you need help from others grooming, bathing, or dressing?: No Do you need help from others with eating?: No Do you need help from others for toileting?: No Do you experience urinary incontinence?: No Do you experience fecal incontinence?: No Instrumental Activities of Daily Living (IADLs): Do you need help with using the telephone?: No Do you need help with shopping?: No Do you need help with food preparation?: No Do you need help with housekeeping?: No Do you need help with laundry?: No Do you need help handling finances?: No Do you drive?: Yes Do you manage your own medication?: Yes, independent Functional Ability and Level of Safety Review Health Status: Have you been hospitalized since we last saw you?: Yes Name of Hospital:: OR If you use medical equipment (e.g.: CPAP Machine), do you have a preferred supplier?: No In general, the patient reports health as: good In general, patient reports life as: good Patient reports sleep pattern as: sleeping well Have you been bothered by sexual problems? : No Have you seen a dentist in the last year?: Yes Physical Activity: Do you exercise for about 20 minutes or more three days a week?: Yes, sometimes Nutritional Assessment: Do you eat a balanced diet including daily serving of fruits, vegetables, and whole grains?: Yes, always Safety: Safety: Does the patient live alone?: Yes Does your home have throw rugs, poor lighting, or a slippery bathtub/shower?: No Does your home have functioning smoke detection?: Yes Do you use any assistive devices?: No Do you always fasten your seatbelt?: Yes Psychosocial Risks: Has stress been negatively affecting your life?: No Has anger been negatively affecting your life?: No Have you been bothered by unusual fatigue?: No Social Influencers of Health Who provided answers?: Self Within the past 12 months we worried whether our food would run out before we got money to buy more.: Never true Within the past 12 months the food we bought just didn't last and we didn't have money to get more.: Never true How hard is it for you to pay for the very basics like food, housing, medical care, and air conditioning / heating?: Not very hard Are you worried that in the next 2 months you may not have stable housing?: No Do you have access to a variety of food including fruits and vegetables?: Yes Within the last 3 months, how many times did you visit the emergency department for your medical care?: 1 Has the lack of transportation kept you from meetings, work, or from getting things needed for daily living?: No Has the lack of transportation kept you from medical appointments or from getting medications?: No How often do you feel lonely or isolated from those around you?: Never How often do you need to have someone help you when you read instructions, pamphlets, or other written material from your doctor or pharmacy?: Never Review of Systems Objective BP (!) 150/80 Comment: provider to recheck bp Pulse 78 Temp 36.4 ??C (97.6 ??F) (Temporal) Resp 16 Ht 1.549 m (61 ) Wt 59.7 kg (131 lb 9.6 oz) BMI 24.87 kg/m?? SpO2: 97 % Hearing: No data recorded Vision Screening: Required for Medicare Initial Preventative Physical Exam (IPPE) No data recorded Physical Exam Patient presented today for an Subsequent Medicare Wellness Visit with management of chronic condition(s). Assessment & Plan Encounter for subsequent annual wellness visit (AWV) in Medicare patient Gastroesophageal reflux disease without esophagitis Seronegative rheumatoid arthritis of multiple sites ([facility] V24, [facility] V28) Primary hypertension Orders: Comprehensive metabolic panel; Future Hypercholesterolemia Orders: Lipid panel with reflex to direct LDL; Future Encounter for long-term (current) use of medications Orders: Comprehensive metabolic panel; Future Other fatigue Orders: CBC and differential; Future Viral syndrome Risk Assessments: Body mass index is 24.87 kg/m??. The BMI is in the acceptable range. Fall Risk: Have you fallen in the past year? no. Are you worried about falling? no. Discussed: no fall risk fall education provided. Depression plan: Screen was negative Pain Medication: Patient does not take any opioid medications Advance Care Planning Advance care planning is the process of planning for future medical care in case you are unable to make your own medical decisions. It involves choosing a health care support representative and reviewing future health care directives. The patient Advance Directives: does have advance directives and/or surrogate decision maker.. Advance directives reviewed and/or discussed: Code Status discussed Full Code - Confirmed Health Maintenance Due Topic Date Due RSV Immunization Adult Patients (1 - 1-dose 75+ series) Never done Medicare Annual Wellness Visit 05/26/2024 Depression Screening Never done COVID-19 Vaccine (9 - Pfizer risk 2023- season) 2025 Influenza Vaccine (1) 03/07/2025 The following vaccine(s) were recommended: Vaccines Recommended: Influenza (Flu Vaccine), COVID vaccine, and RSV vaccine (Arexvy or Abrysvo) Patient Instructions (the written plan) as discussed and documented in our visit today. Jourdan Estrella MD ADULT MEDICINE [address] [address] Dept: [phone] Dept * Jourdan Estrella MD - 03/31/2025 8:00 AM EDT CHIEF COMPLAINT: Medicare Annual Wellness Visit Subsequent ( ) and Hypertension IDENTIFIER: Tyrone Moore is a 79 y.o. old female. HPI: Pt with RA Following with rheum at [facility]) Pt is on humira and mtx Pt is on folic acid supplement Pt notes pain is tolerable pt denies swelling Pt has f/u with rheum this month pt is seen q 4 Pt with htn pt is on atenolol 50 mg losartan 50mg and hctz 25mg Bp today is elevated @150/80 Pt notes rushing am and has not taken meds year Pt notes pressure at home 130's/70's Pt denies light head/dizziness, shortness of breath , chest pain gfr 85 06/2024 Pt with gerd is on omeprazole 20mg Pt is asymptomatic on the medication Pt with high cholesterol pt is on moderate intensity statin therapy with atorvastatin 10mg Last ldl 87 06/2024 Pt notes last week of February was in a [facility] hospital for what sounds like viral syndrome.Pt had fever gi symptoms. Myalgias and headaches. Per patient no specific virus was identified pt notes she had elevated white count. Was given what she is calling a migraine cocktail and abx pt notes she has completed recovered other then having some fatigue ROS: GENERAL: SEE HPI RESPIRATORY: No cough, wheezing or shortness of breath CARDIOVASCULAR: Negative for chest pain, leg swelling and palpitations MUSCULOSKELETAL: See HPI PAST MEDICAL HISTORY: Patient Active Problem List Diagnosis Date Noted Gastroesophageal reflux disease 11/13/2021 FRANCK-inhibitor cough 09/01/2020 History of COVID-19 06/15/2020 Common bile duct dilatation 10/10/2017 Spondylosis of lumbar region without myelopathy or radiculopathy 04/01/2017 Seronegative rheumatoid arthritis of multiple sites ([facility] V24, [facility] V28) 10/29/2016 Aortic regurgitation 12/26/2009 Osteopenia 07/05/2008 Benign neoplasm of rectum and anal canal 06/15/2007 Hypertension 08/06/2006 Sciatica 05/08/2005 SOCIAL HISTORY: Social History Tobacco Use Smoking status: Former Current packs/day: 0.00 Average packs/day: 3.0 packs/day for 20.0 years (60.0 ttl pk-yrs) Types: Cigarettes Start date: 07/07/1961 Quit date: 07/08/1981 Years since quittin.7 Smokeless tobacco: Never Substance Use Topics Alcohol use: Yes FAMILY HISTORY: Family Status Relation Name Status Father (Not Specified) Mother (Not Specified) Sister (Not Specified) Neg Hx (Not Specified) No partnership data on file Family History Problem Relation Name Age of Onset CABG Father age 80 Asthma Mother Heart failure Mother Macular degeneration Sister Blindness Neg Hx Cataracts Neg Hx Glaucoma Neg Hx Strabismus Neg Hx Breast cancer Neg Hx Colon cancer Neg Hx Ovarian cancer Neg Hx ACTIVE MEDICATIONS: No outpatient medications have been marked as taking for the 03/31/25 encounter (Appointment) with Jourdan Estrella MD. ALLERGIES: Lisinopril, Metoclopramide hcl, and Other PHYSICAL EXAM: Pulse 78, temperature 36.4 ??C (97.6 ??F), temperature source Temporal, resp. rate 16, height 1.549m (61 ), weight 59.7 kg (131 lb 9.6 oz), SpO2 97%. There is no height or weight on file to calculate BMI. Plan is deferred until next visit APPEARANCE: Alert and in no acute distress EYES: PERRLA, conjunctiva and sclera normal HEART: RRR with normal S1 and S2, no murmurs, no gallops, no JVD appreciated LUNG: clear to auscultation bilaterally EXTREMITIES: Extremities warm and well perfused without clubbing, cyanosis, or edema LABS: none IMPRESSION: 1. Encounter for subsequent annual wellness visit (AWV) in Medicare patient 2. Gastroesophageal reflux disease without esophagitis 3. Seronegative rheumatoid arthritis of multiple sites ([facility] V24, [facility] V28) 4. Primary hypertension 5. Hypercholesterolemia 6. Encounter for long-term (current) use of medications 7. Other fatigue 8. Viral syndrome PLAN: Patient with htn bp today is elevated pt did not take her bp meds bp has been well controlled in the past and pt reports good bp control at home. pt to continue current regimen of atenolol, losartan and hctz. Will order bmp to assess renal function and lytes pt with high cholesterol on a statin will check lipid profile and lft's last ldl < 100 pt to continue current statin therapy Patient with gerd asymptomatic on current regimen of omeprazole to be continued Patient with RA pt follow with rheum on mtx and humira pain remains tolerable will defer managementto rheum Patient had apparent viral syndrome in [place], I have no notes pt notes had myalgia fever , gi symptoms. Pt notes has recovered other then some lingering fatigue will order cbc to assess for anemia also pt notes had elevated white count I will ensure this has normalized Patient to f/u with me in 6 months No orders of the defined types were placed in this encounter. ADDITIONAL ORDERS: None Jourdan Estrella MD on 03/31/2025 at 7:18 AM EDT documented in this encounter Plan of Treatment Upcoming Encounters Date Type Department Care Team (Late st Contact Info) Description 04/05/2025 1:00 PM EDT Office Visit Adult Medicine [address] [id number] Jana Baird PA [address] [place], [place] 10/05/2025 8:00 AM EDT Office Visit Adult [facility] [address] [place] [address] Jourdan Estrella MD [address] [place] [address] documented as of this encounter Results * (ABNORMAL) Comprehensive metabolic panel (03/31/2025 8:48 AM EDT) Sodium 139 133 - 145 mmol/L LAB CHEMISTRY METHOD 03/31/2025 8:34 PM [facility] Potassium 3.8 3.5 - 5.5 mmol/L LAB CHEMISTRY METHOD 03/31/2025 8:34 PM [facility] Chloride 102 96 - 110 mmol/L LAB CHEMISTRY METHOD 03/31/2025 8:34 PM [facility] CO2 33(H) 21 - 32 mmol/L LAB CHEMISTRY METHOD 03/31/2025 8:34 PM [facility] Anion Gap 4 3 - 11 LAB CHEMISTRY METHOD 03/31/2025 8:34 PM [facility] Glucose 93 70 - 100 mg/dL LAB CHEMISTRY METHOD 03/31/2025 8:34 PM [facility] BUN 16 5 - 25 mg/dL LAB CHEMISTRY METHOD 03/31/2025 8:34 PM [facility] Creatinine 0.81 0.50 - 1.10 mg/dL LAB CHEMISTRY METHOD 03/31/2025 8:34 PM [facility] eGFR 74 >=60 mL/min/1. 73m2 LAB CHEMISTRY METHOD 03/31/2025 8:34 PM [facility] Comment:Calculation based on the Chronic Kidney Disease Epidemiology Collaboration (CKD-EPI) equation refit without adjustment for race. BUN/Creatinine Ratio 19.8 LAB CHEMISTRY METHOD 03/31/2025 8:34 PM [facility] Calcium 9.5 8.5 - 10.5 mg/dL LAB CHEMISTRY METHOD 03/31/2025 8:34 PM [facility] AST (SGOT) 24 10 - 42 unit/L LAB CHEMISTRY METHOD 03/31/2025 8:34 PM [facility] ALT (SGPT) 33 10 - 60 unit/L LAB CHEMISTRY METHOD 03/31/2025 8:34 PM [facility] Alkaline Phosphatase 56 42 - 121 unit/L LAB CHEMISTRY METHOD 03/31/2025 8:34 PM [facility] Total Protein 7.5 6.0 - 8.0 g/dL LAB CHEMISTRY METHOD 03/31/2025 8:34 PM [facility] Albumin 3.9 3.2 - 5.0 g/dL LAB CHEMISTRY METHOD 03/31/2025 8:34 PM [facility] Total Bilirubin 0.6 0.0 - 1.4 mg/dL LAB CHEMISTRY METHOD 03/31/2025 8:34 PM [facility] Blood Venous blood specimen / Unknown Venipuncture / Unknown 03/31/2025 8:48 AM EDT 03/31/2025 8:48 AM EDT us Jourdan Estrella MD LAB BLOOD ORDERABLES Final Resu lt [facility] [address] [place] [address], * Lipid panel with reflex to direct LDL (03/31/2025 8:48 AM EDT) Cholesterol 149 0 - 200 mg/dL LAB CHEMISTRY METHOD 03/31/2025 8:36 PM EDT [facility] Triglycerides 62 0 - 150 mg/dL LAB CHEMISTRY METHOD 03/31/2025 8:36 PM EDT [facility] HDL 84 >=40 mg/dL LAB CHEMISTRY METHOD 03/31/2025 8:36 PM EDT [facility] LDL Calculated 53 0 - 100 mg/dL LAB CHEMISTRY METHOD 03/31/2025 8:36 PM EDT [facility] Comment:Estimated LDL Calcul ated using equation: Total cholesterol - HDL cholesterol - (Triglycerides/5) VLDL Cholesterol Newton 12.4 mg/dL LAB CHEMISTRY METHOD 03/31/2025 8:36 PM EDT [facility] Non HDL Chol. (LDL+VLDL) 65 <145 mg/dL LAB CHEMISTRY METHOD 03/31/2025 8:36 PM EDT [facility] Chol/HDL Ratio 1.8 0.0 - 4.4 LAB CHEMISTRY METHOD 03/31/2025 8:36 PM EDT [facility] Blood Venous blood specimen / Unknown Venipuncture / Unknown 03/31/2025 8:48 AM EDT 03/31/2025 8:48 AM EDT us Jourdan Estrella MD LAB BLOOD ORDERABLES Final Resu lt [facility] [address] [place] [address], documented in this encounter Visit Diagnoses Diagnosis Encounter for subsequent annual wellness visit (AWV) in Medicare patient- Primary Gastroesophageal reflux disease without esophagitis Esophageal reflux Seronegative rheumatoid arthritis of multiple sites ([facility] V24, [facility] V28) Primary hypertension Unspecified essential hypertension Hypercholesterolemia Pure hypercholesterolemia Encounter for long-term (current) use of medications Encounter for long-term (current) use of other medications Other fatigue Viral syndrome Unspecified viral infection, in conditions classified elsewhere and of unspecified site documented in this encounter Orders Code Status Count Last Ordered Date First Orde red Date FULL CODE CONFIRMED 1 03/31/2025 documented in this encounter Additional Health Concerns Assessment Noted Time A fall risk assessment has been complete d for the patient 03/31/2025 8:11 AM EDT documented as of this encounter Care Teams Odd Piece Checker Relationship Specialty Start Date End Date Jourdan Estrella MD [address] [place] [phone] PCP - General Internal Medicine 01/13/20 documented as of this encounter
[2025-04-05 08:03] VITALS: BP 120/90; PULSE 82; O2SAT 96; BMI 24.4
--- NOTE | 2025-04-05 08:03 | MHC.OFFVIS ---
Vital Signs 04/05/25 08:03 Height 5 ft 1 in Weight 129 lb 3.054 oz BMI 24.4 BP 120/90 H Blood Pressure Location Lt brachial Pulse 82 Pulse Source Pulse Oximeter Pulse Oximetry (%) 96 Oxygen Delivery Method Room Air Intake Visit Reasons: 3 months Intake Note: Patient presents for RA follow up. pt will get labs done today. Accompanied by: Self / Same As Patient Allergies lisinopril Allergy (Intermediate, Verified 04/05/25 08:04) Cough metoclopramide (From Reglan) Allergy (Intermediate, Verified 04/05/25 08:04) SHAKY,ANXIETY Seasonal Allergies Allergy (Intermediate, Verified 04/05/25 08:04) RUNNY NOSE HPI HPI 3 months: Details: She was sick in [place] in February with fevers, URI symptoms. Negative covid-19 and flu. She delayed humira but continued to take MTX. Elbow pain has improved substantially. She only has it intermittently. She has not been using elbow support brace or diclofenac gel. She is compliant with PT exercises. PFSH Surgical History Hx laparoscopic cholecystectomy Hx of colonoscopy Family History Father Hx of CABG Mother Asthma CHF (congestive heart failure) Sister Macular degeneration Social History Household Members Other:: lives alone [facility] Are you a primary manager career to a significant other at home: No Do you presently have visiting nurse or other home services: No 75 years or older and lives alone: Yes Alcohol intake: current Alcohol intake frequency: holidays/special occasions only Alcohol type: wine Patient Tobacco Use Status: Former Tobacco user Years Smoked: quit 1979 e-Cigarette/Vaping Use: Never Used service: No Current occupational status: employed 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 We discussed the importance of holding methotrexate and Humira when she has an infection. Rheumatology history: Failed Hydroxychloroquine 1989.s. Methotrexate started late 1989' On Remicade and MTX since 2001; Remicade stopped spring 2007 due to sinusitis and per patient it was not effective. Humira started January 2008- Code(s): M06.9 - Rheumatoid arthritis, unspecified Category: Medical Qualifiers: Rheumatoid arthritis location: multiple sites Rheumatoid factor presence: without rheumatoid factor Qualified Code(s): M06.09 - Rheumatoid arthritis without rheumatoid factor, multiple sites Plan: Continue methotrexate 12.5 mg once weekly Continue folic acid 1 mg daily Continue Humira 40 mg subcutaneous injection every other week Labs for drug monitoring on high-risk medication due today Return to clinic in 3 months (2) Right tennis elbow: Comment: Suspected with strain of proximal forearm muscles. Improved with physical therapy. We discussed the importance of compliance of rehabilitation program Code(s): M77.11 - Lateral epicondylitis, right elbow Category: Medical Plan: Wear elbow brace prescribed Continue PT exercises Apply ice to affected area twice a day She will also apply diclofenac gel 1% every 4-6 hours as needed at least twice a day. Consider cortisone injection next visit Return to clinic in 3 months (3) Long-term use of immunosuppressant medication: Code(s): Z79.899 - Other detention (current) drug therapy Category: Medical Plan: See above (4) Osteopenia: Comment: With high FRAX score. She could not tolerate alendronate in the past. 02/08/22, 03/27/23, 04/21/2024: IV zoledronic acid given Code(s): M85.80 - Other specified disorders of bone density and structure, unspecified site Category: Medical Qualifiers: Osteopenia location: multiple sites Qualified Code(s): M85.89 - Other specified disorders of bone density and structure, multiple sites Plan: Repeat bone density after March 2026. Consider drug holiday She completed ergocalciferol 12 week course for treatment of vitamin-D deficiency Vitamin-D level ordered (5) Vitamin D deficiency: Code(s): E55.9 - Vitamin D deficiency, unspecified Category: Medical Plan: She completed ergocalciferol 12 week course for vitamin-D deficiency Vitamin-D level ordered Return to clinic in 3 months Orders: Orders Erythrocyte Sedimentation Rate 3 Months Z79.89 - Other medical terminologist (current) drug therapy Complete Blood Count Auto Diff 3 Months Z79.89 - Other medical terminologist (current) drug therapy Alanine Aminotransferase 3 Months Z79.89 - Other detention (current) drug therapy Aspartate Amino Transferase 3 Months Z79.89 - Other medical terminologist (current) drug therapy Creatinine 3 Months Z79.89 - Other medical terminologist (current) drug therapy C Reactive Protein 3 Months Z79.89 - Other medical terminologist (current) drug therapy Medications: Refilled diclofenac sodium 1% (Arthritis Pain (diclofenac)) apply to affected area every 4-6 hours PRN pain 2 grams topical QID 100 grams 5RF Humira(CF) Pen (adalimumab) 40 mg (0.4 mL) subcut Q2W 2 ea 2RF NS M06.9 - Rheumatoid arthritis, unspecified methotrexate sodium 12.5 mg (5 x 2.5 mg) PO QWEEK 60 tabs 0RF 84 days M06.9 - Rheumatoid arthritis, unspecified Coding Level of Care Code Est Pt Level 4 (16523) Complex EM visit Add On G2211 Diagnoses Rheumatoid arthritis of multiple sites with negative rheumatoid factor M06.09 Rheumatoid arthritis location: multiple sites Rheumatoid factor presence: without rheumatoid factor Right tennis elbow M77.11 Long-term use of immunosuppressant medication Z79. Osteopenia of multiple sites M85.89 Osteopenia location: multiple sites Vitamin D deficiency E55.9
--- OUTSIDE RECORDS SUMMARY | 2025-04-05 08:04 | XMS_ITS ---
Author Name [facility] Organization Unknown Care Team Organization Name Specialty Phone Email Start Date End Da te [facility] 02/23/2025 [facility] SANTIAGO [facility] Primary [facility] 12/13/2022 4
--- OUTSIDE RECORDS SUMMARY | 2025-04-05 08:04 | XMS_ITS | Clinical Summary ---
Author Organization [address] Address [address] [place] [phone] Phone Care Team Providers Care Bead Supervisor Name Role Phone Jourdan Estrella MD Primary Care Provider [phone] Allergies Active Allergy Reactions Criticality Noted Date [...] BY MOUTH TWICE A DAY 4 Active nystatin (MYCOSTATIN) 100,000 unit/mL suspensionIndic ations:Oral thrush Take 4 mL by mouth 4 (four) times a day. Swish in mouth and spit out. 280 mL 5 Active Additional Information Patient not taking.Reported on 03/31/2025 atenoloL (TENORMIN) 50 mg tablet Take 1 [...] ROUTE DAILY 48 mL 1 5 Active omeprazole (PriLOSEC) [address] capsule TAKE 1 CAPSULE BY MOUTH DAILY. TAKE 30 MINUTES BEFORE BREAKFAST 90 capsule 1 5 Active Active Problems Problem Noted Date Diagnosed Date Gastroesophageal reflux disease 11/13/2021 Assessment & Plan (03/31/2025 8:40 AM EDT): FRANCK-inhibitor cough 09/01/2020 History of COVID-19 06/15/2020 Overview (04/21/2024): URI, GI symptoms, headache Common bile duct dilatation 10/10/2017 Overview (04/21/2024): 9 mm on [facility] CAT scan of 09/29/2017 [facility] records reviewed 05/27/2018, 1 year follow-up MRI recommended by Dr. Rivera as liver function tests were normal. This would be due in October 2018. Biliary dilatation stable on 10/26/2018 Spondylosis of lumbar region without myelopathy or radiculopathy 04/01/2017 Seronegative rheumatoid arth ritis of multiple sites (CMS/HCC V24, CMS/HCC V28) 10/29/2016 Overview (04/21/2024): Hydroxychloroquine not working - 1990.s. Methotrexate started late 1990's ON REMICADE AND MTX since 2001; Remicade stopped spring 2007 due to sinusitis Humira started January 2008 Assessment & Plan (03/31/2025 8:40 AM EDT): Aortic regurgitation 12/26/2009 Overview (04/21/2024): Mild-moderate on echo of 12/20/2009 Osteopenia 07/05/2008 Overview (04/21/2024): Mild, T -1.4 2007; little change on BMD 2011 Benign neoplasm of rectum and anal canal 007 Overview (04/21/2024): Diminutive tubular adenoma removed at colonoscopy 06/09/2002. Negative colonoscopy 06/15/2007. Small tubular adenoma 2014, consider colonoscopy 2021. Hypertension 08/06/2006 Assessment & Plan (03/31/2025 8:40 AM EDT): Orders: Comprehensive metabolic panel; Future Sciatica 05/08/2005 Overview (04/21/2024): DJD at multiple levels on CT 03/2004 Encounters Date Type Department Care Team Description 03/31/2025 8:00 AM EDT Office Visit Adult Medicine [address] [phone] Jourdan Estrella MD Encounter for subsequent annual wellness visit (AWV) in Medicare patient (Primary Dx); Gastroesophageal reflux disease without esophagitis; Seronegative rheumatoid arthritis of multiple sites ([facility] V24, [facility] V28); Primary hypertension; Hypercholesterolemia; Encounter for long-term (current) use of medications; Other fatigue; Viral syndrome 03/08/2025 Telephone Adult Medicine [address] [phone] Jourdan Estrella MD from Last 3 Months Immunizations Immunization Administration Dates Next Due H1N1 Inj Preservative Free 06/27/2009 Influenza Quadravalent, 0.5m l (Fluad) 65yo and older 04/29/2023 Influenza trivalent, 0.5mL ( Fluad) 65yo and older 04/13/2022,03/29/2021,04/03/2015 Influenza trivalent, 0.5mL ( Fluzone High-dose) 65yo and older 04/10/2024,03/29/2021,04/27/2019,05/14,04/03/2015 Influenza trivalent, 0.5mL, preservative free (Fluarix; FluLaval; Fluzone) ages 6mo and older (Afluria) 3 years and older 04/06/2020,05/19/2018,04/08/2014,04/06,04/16/2012,04/08/2011,05/26/2010 ,04/08/2009,05/21/2007,05/13/2006,09/2005 PPD Test 01/07/2008 Talkito SARS-CoV-2 COVID-19, mRNA, LNP-S, preservative free 06/07/2021,10/05/2020,09/14/2020 [...] Surgery Date Site/Laterality Comments CHOLECYSTECTOMY 1969 PROCEDURE: MO LAPAROSCOPY SURG CHOLECYSTECTOMY OTHER SURGICAL HISTORY PROCEDURE: [...] for your loved ones. For example, child adolescent psychiatrist or elderly care for an older adult? [...] file Travel History Travel Start Travel End [place] 02/18/2025 03/16/2025 Obstetrics History Para Term AB IAB SAB [...] Mass Index 24.87 03/31/2025 8:02 AM EDT Plan of Treatment Upcoming Encounters Date Type Department Care Team (Late st Contact Info) Description 04/05/2025 1:00 PM EDT Office Visit Adult Medicine [address] [phone] Jana Biard PA [address] [place] [address] 10/05/2025 8:00 AM EDT Office Visit Adult Medicine [address] [phone] Jourdan Estrella MD [address] [place] [phone] Health Maintenance Due Date Last Done Comments RSV Immunization Adult Patients (1 - 1-dose 75+ series) 2021 Depression Screening 07/07/2024 COVID-19 Vaccine (9 - Pfizer risk 2023- season) 2025 06/22/2024, 03/30/2023, 11/05/2022, Additional history exists Influenza Vaccine (#1) 2025 , 04/29/2023, 04/13/2022, Additional history exists Falls Risk Assessment 03/31/2026 03/31/2025, 024 Hypertension/CHF/CAD Annual BMP Blood Test 03/31/2026 03/31/2025, 07/06/2024, 05/26/2023 Medicare Annual Wellness Visit 03/31/2026 03/31/2025 Social Influencers of Health Screening 03/31/2026 03/31/2025 DTaP,Tdap,and Td Vaccines (3 - Td or Tdap) 05/28/2029 05/28/2019, 12/17/2008 Cholesterol Screening (Lipid Panel) 03/31/2030 03/31/2025, 07/06/2024, 09/09/2022 Osteoporosis Screening (Bone Density Screening) 04/20/2031 04/20/2021, 02/15/2019 Colorectal Cancer Screening: Colonoscopy 04/25/2032 04/25/2022 Hepatitis C Screening Completed 12/19/2012 Pneumococcal Vaccine: 50+ Years Completed 11/24/2018, 03/01/2015, 02/28/2010 Zoster Vaccines Completed 07/29/2020, 05/27/2020 HIB Vaccines Aged Out No longer eligi [...] Procedure Name Priority Date/Time Associated Diagnosis Comments CBC WITH AUTO DIFFERENTIAL Routine 03/31/2025 8:48 AM EDT Other fatigue LIPID PANEL WITH REFLEX TO DIRECT LDL Routine 03/31/2025 8:48 AM EDT Hypercholesterolemi a COMPREHENSIVE METABOLIC PANEL Routine 03/31/2025 8:48 AM EDT Primary hypertension Encounter for long-term (current) use of medications CBC AND DIFFERENTIAL Routine 03/31/2025 8:48 AM EDT Other fatigue FALLS RISK ASSESSMENT Routine 12/02/2023 COLONOSCOPY Routine [...] LAB CHEMISTRY METHOD 03/31/2025 8:36 PM EDT [facility] Triglycerides 62 0 - 150 mg/dL LAB CHEMISTRY METHOD 03/31/2025 8:36 PM T [facility] HDL 84 >=40 mg/dL LAB CHEMISTRY METHOD 03/31/2025 8:36 PM [facility] LDL Calculated 53 0 - 100 mg/dL LAB CHEMISTRY METHOD 03/31/2025 8:36 PM T [facility] Comment:Estimated LDL Calcul ated using equation: Total cholesterol - HDL cholesterol - (Triglycerides/5) VLDL Cholesterol Newton 12.4 mg/dL LAB CHEMISTRY METHOD 03/31/2025 8:36 PM T [facility] Non HDL Chol. (LDL+VLDL) 65 <145 mg/dL LAB CHEMISTRY METHOD 03/31/2025 8:36 PM T [facility] Chol/HDL Ratio 1.8 0.0 - 4.4 LAB CHEMISTRY METHOD 03/31/2025 8:36 PM [facility] Blood Venous blood specimen / Unknown Venipuncture / Unknown 03/31/2025 8:48 AM EDT 03/31/2025 8:48 AM EDT us Jourdan Estrella MD LAB BLOOD ORDERABLES Final Resu lt [facility] [address] [place] [address], [place] [phone] * (ABNORMAL) CBC auto differential (03/31/2025 8:48 AM EDT) WBC 12.3(H) 4.8 - 10.8 K/mcL LAB HEMETOLOGY METHOD 03/31/2025 10:27 AM EDT [facility] RBC 4.30 3.80 - 4.80 M/mcL LAB HEMETOLOGY METHOD 03/31/2025 10:27 AM EDT [facility] Hemoglobin 13.2 11.5 - 16.0 g/dL LAB HEMETOLOGY METHOD 03/31/2025 10:27 AM EDT [facility] Hematocrit 40.1 35.0 - 47.0 % LAB HEMETOLOGY METHOD 03/31/2025 10:27 AM EDT [facility] MCV 92.6 79.0 - 98.0 FL LAB HEMETOLOGY METHOD 03/31/2025 10:27 AM EDT [facility] MCH 30.5 27.0 - 32.0 pcg LAB HEMETOLOGY METHOD 03/31/2025 10:27 AM EDT [facility] MCHC 32.9 32.0 - 37.0 g/dL LAB HEMETOLOGY METHOD 03/31/2025 10:27 AM EDT [facility] RDW 13.6 11.0 - 15.0 % LAB HEMETOLOGY METHOD 03/31/2025 10:27 AM EDT [facility] Platelets 172 130 - 400 K/mcL LAB HEMETOLOGY METHOD 03/31/2025 10:27 AM EDT [facility] MPV 12.0(H) 7.0 - 11.0 FL LAB HEMETOLOGY METHOD 03/31/2025 10:27 AM [facility] NRBC 0.0 <1.0 % LAB HEMETOLOGY METHOD 03/31/2025 10:27 AM [facility] NRBC Absolute 0.00 <0.10 K/mcL LAB HEMETOLOGY METHOD 03/31/2025 10:27 AM [facility] Neutrophils Relative 57.3 % LAB HEMETOLOGY METHOD 03/31/2025 10:27 AM [facility] Lymphocytes Relative 31.4 % LAB HEMETOLOGY METHOD 03/31/2025 10:27 AM [facility] Monocytes Relative 7.7 % LAB HEMETOLOGY METHOD 03/31/2025 10:27 AM [facility] Eosinophils Relative 2.8 % LAB HEMETOLOGY METHOD 03/31/2025 10:27 AM [facility] Basophils Relative 0.5 % LAB HEMETOLOGY METHOD 03/31/2025 10:27 AM [facility] Immature Granulocytes Relative 0.3 % LAB HEMETOLOGY METHOD 03/31/2025 10:27 AM [facility] Neutrophils Absolute 7.03(H) 1.50 - 7.00 K/mcL LAB HEMETOLOGY METHOD 03/31/2025 10:27 AM [facility] Lymphocytes Absolute 3.85 1.00 - 5.00 K/mcL LAB HEMETOLOGY METHOD 03/31/2025 10:27 AM [facility] Monocytes Absolute 0.95 0.20 - 1.00 K/mcL LAB HEMETOLOGY METHOD 03/31/2025 10:27 AM [facility] Eosinophils Absolute 0.34 0.00 - 0.50 K/mcL LAB HEMETOLOGY METHOD 03/31/2025 10:27 AM [facility] Basophils Absolute 0.06 0.00 - 0.20 K/mcL LAB HEMETOLOGY METHOD 03/31/2025 10:27 AM EDT [facility] Immature Granulocytes Absolute 0.04(H) 0.00 - 0.03 K/mcL LAB HEMETOLOGY METHOD 03/31/2025 10:27 AM EDT [facility] Blood Venous blood specimen / Unknown Venipuncture / Unknown 03/31/2025 8:48 AM EDT 03/31/2025 8:48 AM EDT us Jourdan Estrella MD LAB BLOOD ORDERABLES Final Resu lt [facility] [address] [place] [address], * (ABNORMAL) Comprehensive metabolic panel (03/31/2025 8:48 AM EDT) Sodium 139 133 - 145 mmol/L LAB CHEMISTRY METHOD 03/31/2025 8:34 PM [facility] Potassium 3.8 3.5 - 5.5 mmol/L LAB CHEMISTRY METHOD 03/31/2025 8:34 PM [facility] Chloride 102 96 - 110 mmol/L LAB CHEMISTRY METHOD 03/31/2025 8:34 PM [facility] CO2 33(H) 21 - 32 mmol/L LAB CHEMISTRY METHOD 03/31/2025 8:34 PM [facility] Anion Gap 4 3 - 11 LAB CHEMISTRY METHOD 03/31/2025 8:34 PM [facility] Glucose 93 70 - 100 mg/dL LAB CHEMISTRY METHOD 03/31/2025 8:34 PM [facility] BUN 16 5 - 25 mg/dL LAB CHEMISTRY METHOD 03/31/2025 8:34 PM [facility] Creatinine 0.81 0.50 - 1.10 mg/dL LAB CHEMISTRY METHOD 03/31/2025 8:34 PM [facility] eGFR 74 >=60 mL/min/1. 73m2 LAB CHEMISTRY METHOD 03/31/2025 8:34 PM [facility] Comment:Calculation based on the Chronic Kidney Disease Epidemiology Collaboration (CKD-EPI) equation refit without adjustment for race. BUN/Creatinine Ratio 19.8 LAB CHEMISTRY METHOD 03/31/2025 8:34 PM [facility] Calcium 9.5 8.5 - 10.5 mg/dL LAB CHEMISTRY METHOD 03/31/2025 8:34 PM [facility] AST (SGOT) 24 10 - 42 unit/L LAB CHEMISTRY METHOD 03/31/2025 8:34 PM [facility] ALT (SGPT) 33 10 - 60 unit/L LAB CHEMISTRY METHOD 03/31/2025 8:34 PM [facility] Alkaline Phosphatase 56 42 - 121 unit/L LAB CHEMISTRY METHOD 03/31/2025 8:34 PM [facility] Total Protein 7.5 6.0 - 8.0 g/dL LAB CHEMISTRY METHOD 03/31/2025 8:34 PM [facility] Albumin 3.9 3.2 - 5.0 g/dL LAB CHEMISTRY METHOD 03/31/2025 8:34 PM [facility] Total Bilirubin 0.6 0.0 - 1.4 mg/dL LAB CHEMISTRY METHOD 03/31/2025 8:34 PM [facility] Blood Venous blood specimen / Unknown Venipuncture / Unknown 03/31/2025 8:48 AM EDT 03/31/2025 8:48 AM EDT us Jourdan Estrella MD LAB BLOOD ORDERABLES Final Resu lt [facility] [address] [place] [address], * Falls Risk Assessment (12/02/2023) Falls Risk Assessment Abstracted us Historical Provider HEALTH MAINTENANCE Final [...] spine and hips were performed on a [employer] fan beam bone densitometer. Bone mineral density [...] spine and hips were performed on a [employer] beam bone densitometer. Bone mineral density measurements [...] -2.5 with fractures us Jourdan Estrella MD IMG DXA PROCEDURES Final Result * Hepatitis C Screening (12/19/2012) Hepatitis C Screening Abstracted us Historical Provider HEALTH MAINTENANCE Final Result from Last 3 Months or Most Recently Relevant to Health Maintenance Insurance MEDICARE [facility] Advance Directives * Full Code - Confirmed (Latest Code Status on File) Date Activated Date Inactivated Comments 03/31/2025 8:29 AM This code stat us was ascertained in the following way: Code status discussion: discussion with patient To update the patient's code status, place a code status order. Do not modify or discontinue any currently active code status orders. Care Teams Bead Supervisor Relationship Specialty Start Date End Date Jourdan Estrella MD [address] [place] [phone] PCP - General Internal Medicine 01/13/20
== END 2025-04-05 08:26 | disposition home or self-care (01) ==
LOC: HO.RHES 07:58
PROVIDERS: PCP Internal Medicine; Visit Provider Internal Medicine Rheumatology
DX: M06.09 Rheumatoid arthritis without rheumatoid factor, multiple sites (principal); M77.11 Lateral epicondylitis, right elbow; Z79.899 Other long term (current) drug therapy; M85.89 Other specified disorders of bone density and structure, multiple sites; E55.9 Vitamin D deficiency, unspecified
CPT/HCPCS: 99214; G2211